=== PATIENT | female | born 1970 | race Caucasian/White ===

== ENCOUNTER 2017-04-09 13:08 | Inpatient (IN) | payer MEDICAID, OTHER ==
--- NOTE | 2017-04-09 13:46 | ED Physician Chart ---
Chief Complaint/HPI - Patient Information Date Seen:: 04/09/17 Time Seen:: 13:15 Chief Complaint:: Left Hip Pain History of Present Illness:: onset x 4 days of intermittent left hip pain; pt denies any trauma; last tetanus shot: <5 years; UTD; pt denies LOC, ALOC, AMS, H/As, neck pain, C/P, SOB , Abd. pain, cough, A/N/V/D/c, fever, chills, or urinary s/s Allergies:: Allergies Allergy/AdvReac Type Severity Reaction Status Date / Time No Known Allergies Allergy Verified 04/09/17 13:12 Vitals:: Vital Signs - 8 hr 04/09/17 13:13 Temp 98.9 F HR 108 RR 16 BP 117/81 O2 Sat % 97 Historian:: Patient, Family Member Review:: Nurse's Note Reviewed Review of Systems - Review of Systems General/Constitutional: Fever, Chills, No weight loss, No weakness, No diaphoresis, No edema, No loss of appetite Skin: No skin lesions, Rash, No bruising Head: No headache, No light-headedness Eyes: No loss of vision, No pain, No diplopia ENT: No earache, No nasal drainage, No sore throat, No tinnitus Neck: No neck pain, No swelling, No thyromegaly, No stiffness, No mass noted Cardio Vascular: No chest pain, No palpitations, No PND, No orthopnea, No edema Pulmonary: No SOB, No cough, No sputum, No wheezing GI: Nausea, Vomiting, Diarrhea, No pain, No melena, No hematochezia, Constipation, No hematemesis G/U: No dysuria, No frequency, No hematuria 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, No abnormal vaginal bleed, No contraction Musculoskeletal: Bone or joint pain, No back pain, No muscle pain Endocrine: No polyuria, No polydipsia Psychiatric: Prior psych history, Depression, Anxiety, No suicidal ideation, No homicidal ideation, No auditory hallucination, No visual hallucination Hematopoietic: No bruising, No lymphadenopathy Allergic/Immuno: No urticaria, No angioedema Neurological: No syncope, No focal symptoms, No weakness, No paresthesia, No headache, No seizure, No dizziness, No confusion, No vertigo Past Medical History - Past Medical History Obtainable: Yes Past Medical History: Asthma/COPD, Other (PNA) Family History: HTN Social History: Smoker, No Alcohol, No Drug Use, Single Surgical History: Psychiatricy History: Bipolar Medication: Reviewed Family Medical History - Family Member Mother Hx Family Cancer: No Hx Family Congestive Heart Failure: No Hx Family Hypertension: No Hx Family Diabetes: No Hx Family Seizures: No Hx Family Dementia: No Hx Family AIDS: No Physical Exam - Physical Examination General/Constitutional: Awake, Well-developed, well-nourished, Alert, No distress, GCS 15, Non-toxic appearing, Ambulatory Head: Atraumatic Eyes: Lids, conjuctiva normal, PERRL, EOMI Skin: Nl inspection, No rash, No skin lesions, No ecchymosis, Well hydrated, No lymphadenopathy ENMT: External ears, nose nl, Nasal exam nl, Lips, teeth, gums nl Neck: Nontender, Full ROM w/o pain, No JVD, No nuchal rigidity, No bruit, No mass, No stridor Respiratory: Nl effort/Exclusion, Clear to Auscultation, No Wheeze/Rhonchi/Rales Cardio Vascular: RRR, No murmur, gallop, rubs, NL S1 S2 GI: No tenderness/rebounding/guarding, No organomegaly, No hernia, Normal BS's, Nondistended, No mass/bruits, No McBurney tenderness : No CVA tenderness Extremities: normal strength in all extremities, No edema, Normal digits & nails Other Extremities comments:: Left Hip: + tenderness and deformity with limited ROMs; good NV functions Neuro/Psych: Alert/oriented, DTR's symmetric, Normal sensory exam, Normal motor strength, Judgement/insight normal, Mood normal, Normal gait, No focal deficits Misc: normal gait, Normal back, No paraspinal tenderness Labs/Radiology/EKG Results - Lab Results Comments:: U/A: + Nitrate; + Leukocytes; + Bacteria - Radiology Results Results: + Mildly displaced Intertrochanteric Fracture of Left Hip ED Septic Shock - . Is Septic Shock (SBP<90, OR Lactate>4 mmol\L) present?: No - <6hrs of presentation: Vital Signs: Vital Signs - 8 hr 04/09/17 13:13 Temp 98.9 F HR 108 RR 16 BP 117/81 O2 Sat % 97 Reassessment (Disposition) - Reassessment Reassessment Condition:: Improved - Diagnosis Diagnosis:: Left Hip Fracture; Left Hip Intractable Pain; UTI - Aftercare/Follow up Instructions Aftercare/Follow-Up Instructions:: Counseled pt regarding lab results/diagnosis & need follow up, Counseled pt & family regarding lab results/diagnosis & need follow up - Patient Disposition Discharge/Transfer:: Acute Care w/in this hosp Accepting Physician:: Dr. Garcia Time Called:: 6050 Time Responded:: 16:40 Admitted to:: Med/Surg Spoke to:: Dr. Garcia Admitting Medical Physician:: Dr. Garcia Condition at Disposition:: Stable, Improved
[2017-04-09 14:29] LABS: AMPHETAMINE URINE NEGATIVE (NEGATIVE); BARBITURATES URINE NEGATIVE (NEGATIVE); METHADONE URINE POSITIVE (NEGATIVE)
[2017-04-09 14:49] LABS: URINE BILIRUBIN SMALL (NEGATIVE); URINE COLOR ORANGE; URINE GLUCOSE (UA) NEGATIVE (NEGATIVE); URINE KETONE NEGATIVE (NEGATIVE)
[2017-04-09 14:50] LABS: URINE BLOOD NEGATIVE (NEGATIVE); URINE PH >=9.0; URINE PROTEIN >300 mg/dL (NEGATIVE)
[2017-04-09 14:51] LABS: URINE AMORPHOUS SEDIMENT MODERATE PHOSPHATES (NONE SEEN); URINE BACTERIA MODERATE /hpf (NONE SEEN); URINE EPITHELIAL CELLS NONE SEEN /lpf (FEW); URINE RBC NONE SEEN /hpf (0-5); URINE TRIPLE PHOSPHATE CRYSTAL MANY /hpf (FEW); URINE WBC 0-2 /hpf (0-5)
--- NOTE | 2017-04-09 15:05 | Diagnostic Imaging Report ---
Exam: Left hip joint. : HISTORY: Status post fall Findings: Portable examination of the left hip joint at 1434 hours was reviewed. The study demonstrates a intratrochanteric fracture of the left femur with mild overriding of the shaft of left femur. The head of left femur is well left acetabulum. The visualized hemipelvis is intact. IMPRESSION: Minimally displaced intratrochanteric fracture left hip joint
--- NOTE | 2017-04-09 15:05 | Diagnostic Imaging Report ---
Exam: Portable examination of pelvis. HISTORY: Status post fall Findings: Portable examination of the pelvis of the 14th 34 hours was reviewed, the study demonstrates minimally displaced intratrochanteric fracture of the left hip joint. The head of left femur is well within the acetabular fossa. The pelvis is intact. The right hip joint is normal. IMPRESSION: Minimally displaced intratrochanteric fracture left hip joint.
[2017-04-09] MEDS ORDERED: cefTRIAXone 1 GM in Sodium Chloride 0.9% 50 ML IV ONE (16:07)
[2017-04-09 16:33] LABS: % BASOPHILS 1.1 % (0.0-2.0); % EOSINOPHILS 0.3 % (0.0-5.0); % LYMPHOCYTES 12.5 % (20.0-50.0); % MONOCYTES 6.9 % (2.0-10.0); % NEUTROPHILS 79.2 % (40.0-80.0); HEMATOCRIT 39.5 % (35.0-45.0); HEMOGLOBIN 13.4 gm/dL (11.7-15.5); MEAN CORPUSCULAR HEMOGLOBIN 29.1 pg (27.0-31.0); MEAN CORPUSCULAR HGB CONC 33.8 pg (28.0-36.0); MEAN PLATELET VOLUME 8.1 fl; NEUTROPHILE ABSOLUTE 10.8 Th/cmm (1.8-8.0); PLATELET COUNT 262 Th/cmm (150-400); RED BLOOD COUNT 4.59 Mil/cmm (3.80-5.10); RED CELL DISTRIBUTION WIDTH 13.1 % (11.5-20.0)
[2017-04-09 16:55] LABS: WHITE BLOOD COUNT 13.5 Th/cmm (4.8-10.8)
[2017-04-09 17:04] LABS: TROP I < 0.01 ng/mL (0.01-0.05)
[2017-04-09 17:10] LABS: ANION GAP 8.5 (7.0-16.0); BUN - UREA NITROGEN 12 mg/dL (7-25); BUN/CREATININE RATIO 10.9; CALCIUM SERUM 10.4 mg/dL (8.6-10.3); CARBON DIOXIDE 24.8 mEq/L (21.0-31.0); CHLORIDE 105 mEq/L (98-107); CHOLESTEROL 161 mg/dL (<200); CREATININE - SERUM 1.1 mg/dL (0.6-1.2); GLUCOSE 117 mg/dL (70-105); POTASSIUM SERUM 4.3 mEq/L (3.5-5.1); SODIUM SERUM 134 mEq/L (136-145); TRIGLYCERIDES 166 mg/dL (<150)
[2017-04-09 17:13] LABS: INR 0.91 (0.5-1.4); PROTHROMBIN TIME (TEST) 9.5 SECONDS (9.5-11.5)
[2017-04-09 17:35] LABS: BNP 9.8 pg/mL (5.0-100.0)
[2017-04-09] MEDS ORDERED: CARISOPRODOL 250 MG PO SCH (21:00)
[2017-04-09] MEDS: Morphine Sulfate 2 mg/mL 1mL Syr IVP PRN (21:30)
[2017-04-10] MEDS: Enoxaparin 30 mg/0.3 mL 0.3mL Syr SUBQ SCH ×3 (01:21→17:16)
[2017-04-10] MEDS: Morphine Sulfate 2 mg/mL 1mL Syr IVP PRN ×4 (01:40→18:47)
[2017-04-10 02:02] VITALS: BP 138/71
--- NOTE | 2017-04-10 02:34 | Admit Criteria Form ---
Admit Criteria Forms - Admit Criteria Diagnosis: MUSCULOSKELETAL DISEASE [facility] Clinical Indications for Admission to Inpatient Care (Place 'X' for any and all applicable criteria): Hospital admission is needed for appropriate care of the patient because of 1 or more of the following: [X ]I. Fracture, dislocation, or other musculoskeletal injury requiring inpatient care(medical) as indicated by 1 or more of the following(4)(5)(6)(7) [ ]a) Vertebral fracture requiring observation for instability or neurologic compromise (8) [ ]b) Compartment syndrome (proven or cannot be ruled out during observation level of care) (9) [ ]c) Limb-threatening injury [ ]d) Major injury requiring inpatient stabilization such as traction initiation or external fixation before internal fixation or closure of complex or open fracture [ X]e) Major injury requiring inpatient treatment after emergency or observation level care (as appropriate) [X ]f) Severe pain requiring acute inpatient management [ ]g) Injury with suspicion of abuse or neglect (eg., child, dependent elderly) [ ]II. Newly diagnosed or suspected bone, joint, or orthopedic device infection (e.g., osteomyelitis, septic arthritis) needing 1 or more of the following(1)(2)(3) [ ]a) IV antibiotics that cannot be initiated in other than inpatient setting (e.g., patient too unstable or home infusion not available) [ ]b) Device removal or replacement [ ]c) Bone or soft tissue debridement [ ]d) Joint drainage (drain placement or repetitive aspirations) [ ]III. Severe rheumatologic disease (e.g., systemic lupus erythematosus, rheumatoid arthritis) with complications or comorbidities (Also use Optimal Recovery Care Criteria or General Recovery Criteria as appropriate on the basis of predominant condition), including 1 or more of the following( 10)(11)(12)(13) [ ]a) Severe infection (e.g., CORPORATE DIRECTOR infection, sepsis) (14) [ ]b) Respiratory complications, including 1 or more of the following : [ ]i) Pleural effusion with respiratory compromise [ ]ii) Pulmonary hypertension with congestive failure [ ]iii) Respiratory failure [ ]iv) Pulmonary hemorrhage (15) [ ]c) Hematologic disease, including 1 or more of the following: [ ]i) Coagulopathy with bleeding [ ]ii) Thrombosis with hypercoagulable state [ ]iii) Thrombotic thrombocytopenic purpura [ ]d) Cerebritis with seizures, psychosis, or other severe abnormalities [ ]e) Vertebral destruction with monitoring needed for cervical myelopathy& possible respiratory compromise [ ]f) Exacerbation that requires inpatient treatment (e.g., intravenous immunosuppression) (16) [ ]g) Acute renal failure [ ]h) Cerebritis with seizures, psychosis, Altered mental status, or other neurologic abnormalities [ ]i) Pericardial effusion with tamponade [ ]j) Vertebral destruction, with monitoring needed for cervical myelopathy and possible respiratory compromise [ ]IV. Severe vasculitis with complications or comorbidities (Also use Optimal Recovery Care Criteria General Recovery Criteria as appropriate on the basis of predominant condition), including 1 or more of the following(11)(12)(17)(18)(19)(20) [ ]a) Exacerbation that requires inpatient treatment (e.g., intravenous immunosuppression) (19)(21) [ ]b) Pulmonary hemorrhage (15) [ ]c) CORPORATE DIRECTOR vasculitis with seizures, psychosis, Altered mental status that is severe or persistent, or other severe abnormalities (22) [ ]d) Cerebral infarction [ ]e) Gastrointestinal ischemia [ ]f) Gangrene or threatened amputation [ ]g) Renal failure (16) [ ]h) Other significant complications of vasculitis ( eg., tissue or organ ischemia, organ dysfunction ) [ ]V. Severe myopathy as indicated by 1 or more of the following (28)(29) [ ]a) New onset of airway compromise or inability to swallow [ ]b) Respiratory deterioration with observation needed for impending respiratory failure [ ]c) Exacerbation that requires inpatient treatment (e.g., intravenous immunosuppression) [ ]. Severe crystal gout (arthropathy) indicated by 1 or more of the following (23)(24) [ ]a) Severe pain requiring acute inpatient management [ ]b) Exacerbation that requires inpatient treatment (e.g., intravenous treatment) [ ]VII.Rhabdomyolysis and 1 or more of the following (25)(26)(27) [ ]a) Acute renal failure [ ]b) Need for intravenous hydration after emergency or observation level care (as appropriate) [ ]c) Inability to maintain oral hydration [ ]d) Change in mental status [ ]e) Electrolyte abnormality that remains after emergency or observation level care (as appropriate) [ ]VIII Post amputation complication, as indicated by ANY ONE of the following [ ]a) Infection [ ]b) Dehiscence [ ]c) Myodesis failure [ ]IX. Severe pain requiring acute inpatient management due to musculoskeletal condition [ ]X. Musculoskeletal Disease and ALL of the following: [ ]a) Symptom or finding for which emergency and observation care have failed or are not considered appropriate (Use General Criteria: Observation Care as appropriate) [ ]b) Presence of ANY ONE of the following [ ]i) A General Admission Criteria [ ]ii) A Pediatric General Admission Criteria The original [facility] content created by [facility] has been revised. The portions of the content which have been revised are identified through the use of italic text or in bold, and [facility] has neither reviewed nor approved the modified material. All other unmodified content is copyright [facility]. Please see references footnoted in the original [facility] edition 2016 Admit Criteria Met?: Yes
[2017-04-10 06:22] LABS: % BASOPHILS 1.3 % (0.0-2.0); % EOSINOPHILS 0.3 % (0.0-5.0); % LYMPHOCYTES 19.5 % (20.0-50.0); % MONOCYTES 7.4 % (2.0-10.0); % NEUTROPHILS 71.5 % (40.0-80.0); HEMATOCRIT 36.3 % (35.0-45.0); HEMOGLOBIN 12.2 gm/dL (11.7-15.5); MEAN CELL VOLUME 86.7 fl (81-100); MEAN CORPUSCULAR HEMOGLOBIN 29.2 pg (27.0-31.0); MEAN CORPUSCULAR HGB CONC 33.7 pg (28.0-36.0); MEAN PLATELET VOLUME 8.5 fl; NEUTROPHILE ABSOLUTE 7.2 Th/cmm (1.8-8.0); PLATELET COUNT 243 Th/cmm (150-400); RED BLOOD COUNT 4.19 Mil/cmm (3.80-5.10); RED CELL DISTRIBUTION WIDTH 13.4 % (11.5-20.0)
[2017-04-10 07:07] LABS: ANION GAP 7.8 (7.0-16.0); BUN - UREA NITROGEN 15 mg/dL (7-25); BUN/CREATININE RATIO 16.7; CALCIUM SERUM 9.7 mg/dL (8.6-10.3); CHLORIDE 107 mEq/L (98-107); CREATININE - SERUM 0.9 mg/dL (0.6-1.2); GLUCOSE 180 mg/dL (70-105); MAGNESIUM 2.1 mg/dL (1.9-2.7); POTASSIUM SERUM 3.8 mEq/L (3.5-5.1); SODIUM SERUM 134 mEq/L (136-145)
[2017-04-10 07:15] LABS: INR 0.9 (0.5-1.4); PROTHROMBIN TIME (TEST) 9.3 SECONDS (9.5-11.5)
[2017-04-10 07:24] LABS: WHITE BLOOD COUNT 9.9 Th/cmm (4.8-10.8)
[2017-04-10] MEDS ORDERED: ZIPRASIDONE HCL 60 MG PO SCH (09:00)
[2017-04-10] MEDS ORDERED: cefTRIAXone 1 GM in Sodium Chloride 0.9% 50 ML IV ONE (09:00)
--- NOTE | 2017-04-10 10:39 | Diagnostic Imaging Report ---
Portable chest x-ray Time: 1633 hours History: None Allowing for portable technique the heart size is normal. No focal pulmonary parenchymal processes. No hilar or mediastinal abnormalities. Impression: No acute abnormalities.
[2017-04-10] MEDS: Fluconazole 100mg/50mL 100 MG/50 ML BOTTLE IV SCH (12:24)
--- NOTE | 2017-04-11 02:30 | Consultation ---
DATE OF CONSULTATION: 04/10/2017 HISTORY: The patient is a 47-year-old lady admitted to [facility] on 04/09/2017 because of a fracture of the left hip. I was called in orthopedic consultation by the admitting physician regarding this fracture. PAST HISTORY: The patient is vociferous and cussing and not making any sense at all. I tried to take a history and find out about her fracture and I got absolutely nowhere. Information obtained from the chart indicates that she is a tobacco user. She was admitted from her home rather than a facility of any sort. There is a history of substance abuse. She also has a history of asthma, COPD, and bipolar disorder. PHYSICAL EXAMINATION: The patient was examined in her hospital room at [facility]. She was lying on her back on the bed with her left leg hanging over the side. I observed some swelling about the left hip, but no bruising. Any attempt at movement, active or passive brought about even louder yelling and cussing, i.e. apparently caused her pain. Her ankles "dry" with no edema. Peripheral pulses are thready. Skin color and temperature is normal. I observed appropriate movement of all other limbs. She was totally uncooperative when I was trying to examine her, and just continued to cuss and yell even more loudly. IMAGING STUDIES: I did x-rays in the PACS fracture in the femoral neck, which is displaced. ORTHOPEDIC DIAGNOSIS: Fracture left femoral neck, closed, displaced. RECOMMENDATIONS: When the patient is medically cleared and optimized she can have surgery arthroplasty left hip, following which she can be ambulated, partial weightbearing, and when stable and safe in a couple of days will be transferred to a SNF. Thank you for this interesting referral. JOB# [id number]
[2017-04-11] MEDS: Morphine Sulfate 2 mg/mL 1mL Syr IVP PRN ×2 (06:13→10:30)
[2017-04-11] MEDS: Enoxaparin 30 mg/0.3 mL 0.3mL Syr SUBQ SCH ×2 (09:15→21:11)
[2017-04-11] MEDS: Fluconazole 100mg/50mL 100 MG/50 ML BOTTLE IV SCH (09:16)
[2017-04-11 10:55] LABS: HEMOGLOBIN 12.6 gm/dL (11.7-15.5); MEAN CORPUSCULAR HEMOGLOBIN 29.2 pg (27.0-31.0); MEAN PLATELET VOLUME 8.1 fl; PLATELET COUNT 230 Th/cmm (150-400); RED CELL DISTRIBUTION WIDTH 13.5 % (11.5-20.0); WHITE BLOOD COUNT 10.5 Th/cmm (4.8-10.8)
[2017-04-11 11:25] LABS: EOSINOPHIL 2 % (0-5); NEUTROPHILS 66 % (40-80); PLATELET ESTIMATE ADEQUATE (NORMAL); PLATELET MORPHOLOGY NORMAL (NORMAL); TOTAL CELLS COUNTED 100
[2017-04-11 12:29] LABS: ANION GAP 7.2 (7.0-16.0); BUN - UREA NITROGEN 7 mg/dL (7-25); CALCIUM SERUM 9.3 mg/dL (8.6-10.3); CARBON DIOXIDE 23.8 mEq/L (21.0-31.0); CHLORIDE 111 mEq/L (98-107); CREATININE - SERUM 0.7 mg/dL (0.6-1.2); GLUCOSE 104 mg/dL (70-105); MAGNESIUM 2.1 mg/dL (1.9-2.7); SODIUM SERUM 138 mEq/L (136-145)
--- NOTE | 2017-04-11 14:19 | Cardiology ---
Cardiology Report - Cardiology Cardiology: Date of Service: 04/10/2017 Dr. Garcia M-MODE ECHOCARDIOLGRAM: Mitral valve normal left ventricular posterior wall hypertrophy ejection fraction 60% left antrum normal aortic root is normal aortic leaflets normal CONCLUSION: Hypertrophy left ventricle ejection fraction 60% 2D ECHO: Long axis hypertrophy left ventricle mitral normal left atrium normal aortic root normal aortic leaflets normal Short axis mitral valve and aortic valve normal Apical 4 chamber normal-sized left ventricle with hypertrophy of the left ventricle ejection fraction 60% left Atrium normal right ventricular cavity domal right atrium normal CONCLUSION: Hypertrophy left ventricle ejection fraction 60% DOPPLER: Prominent A wave normal antegrade flow mitral valve tricuspid valve the aortic pulmonary valve CONCLUSION: 04/10/2017
[2017-04-11] MEDS ORDERED: Midazolam 1mg/ml 2 ml vial IV ONE (14:21)
[2017-04-11] MEDS ORDERED: Meperidine 25 mg/mL 1mL Syr IVP PRN (16:43)
[2017-04-11] MEDS ORDERED: Lactated Ringer 1,000 ML IV SCH (16:45)
[2017-04-11] MEDS ORDERED: fentaNYL Citrate 100 mcg/2mL Vial ONE (16:46)
[2017-04-12] MEDS: Nicotine 21 mg/24 hr Tdm TD SCH ×2 (01:01→08:52)
[2017-04-12] MEDS: Morphine Sulfate 2 mg/mL 1mL Syr IVP PRN ×2 (01:02→18:25)
[2017-04-12] MEDS ORDERED: Morphine Sulfate 2 mg/mL 1mL Syr IVP PRN ×2 (03:28→04:59)
[2017-04-12] MEDS ORDERED: Magnesium Hydroxide (MOM) 30 mL UDC PO PRN (03:33)
[2017-04-12] MEDS: ceFAZolin 1 GM in Sodium Chloride 0.9% 50 ML IV SCH ×2 (04:23→14:36)
[2017-04-12] MEDS: D5-0.45NS 1,000 ML IV SCH ×2 (04:24→22:06)
[2017-04-12] MEDS: Multivitamin Tab PO SCH (08:51)
[2017-04-12] MEDS: Enoxaparin 30 mg/0.3 mL 0.3mL Syr SUBQ SCH ×2 (08:51→18:15)
[2017-04-12] MEDS: Fluconazole 100mg/50mL 100 MG/50 ML BOTTLE IV SCH (08:54)
[2017-04-12 08:59] LABS: % BASOPHILS 0.4 % (0.0-2.0); % EOSINOPHILS 0.4 % (0.0-5.0); % MONOCYTES 9.4 % (2.0-10.0); % NEUTROPHILS 74.8 % (40.0-80.0); MEAN CELL VOLUME 86.8 fl (81-100); MEAN CORPUSCULAR HEMOGLOBIN 29.5 pg (27.0-31.0); MEAN PLATELET VOLUME 8.2 fl; NEUTROPHILE ABSOLUTE 8.8 Th/cmm (1.8-8.0); PLATELET COUNT 215 Th/cmm (150-400); RED BLOOD COUNT 3.18 Mil/cmm (3.80-5.10); RED CELL DISTRIBUTION WIDTH 13.3 % (11.5-20.0); WHITE BLOOD COUNT 11.7 Th/cmm (4.8-10.8)
[2017-04-12 09:17] LABS: ALKALINE PHOSPHATASE 89 U/L (34-104); ANION GAP 7.7 (7.0-16.0); BILIRUBIN,TOTAL 0.2 mg/dL (0.3-1.0); BUN - UREA NITROGEN 4 mg/dL (7-25); BUN/CREATININE RATIO 5.7; CALCIUM SERUM 8.5 mg/dL (8.6-10.3); CARBON DIOXIDE 21.7 mEq/L (21.0-31.0); CHLORIDE 109 mEq/L (98-107); CREATININE - SERUM 0.7 mg/dL (0.6-1.2); GLUCOSE 205 mg/dL (70-105); POTASSIUM SERUM 3.4 mEq/L (3.5-5.1); SGOT 28 U/L (13-39); SGPT/ALT 19 U/L (7-52); SODIUM SERUM 135 mEq/L (136-145)
[2017-04-12 09:24] LABS: HEMATOCRIT 27.6 % (35.0-45.0); HEMOGLOBIN 9.4 gm/dL (11.7-15.5)
[2017-04-12] MEDS ORDERED: Hydrocodone/APAP 5mg/325mg Tab PO PRN (13:34)
--- NOTE | 2017-04-12 14:19 | General Progress Note ---
Subjective - Review of Systems Service Date: 04/12/17 Subjective: Modest pain left hip - surgery yesterday She goes outside and smokes. Objective - Results Result Diagrams: 04/12/17 08:50 04/12/17 08:50 Recent Labs: Laboratory Last Values WBC 11.7 Th/cmm (4.8-10.8) H 04/12/17 08:50 RBC 3.18 Mil/cmm (3.80-5.10) L 04/12/17 08:50 Hgb 9.4 gm/dL (11.7-15.5) L D 04/12/17 08:50 Hct 27.6 % (35.0-45.0) L D 04/12/17 08:50 MCV 86.8 fl (81-100) 04/12/17 08:50 MCH 29.5 pg (27.0-31.0) 04/12/17 08:50 MCHC Differential 34.0 pg (28.0-36.0) 04/12/17 08:50 RDW 13.3 % (11.5-20.0) 04/12/17 08:50 Plt Count 215 Th/cmm (150-400) 04/12/17 08:50 MPV 8.2 fl 04/12/17 08:50 Neutrophils % 74.8 % (40.0-80.0) 04/12/17 08:50 Lymphocytes % 15.0 % (20.0-50.0) L 04/12/17 08:50 Monocytes % 9.4 % (2.0-10.0) 04/12/17 08:50 Eosinophils % 0.4 % (0.0-5.0) 04/12/17 08:50 Basophils % 0.4 % (0.0-2.0) 04/12/17 08:50 Neutrophils (Manual) 66 % (40-80) 04/11/17 10:59 Lymphocytes 26 % (20-50) 04/11/17 10:59 Monocytes 6 % (2-10) 04/11/17 10:59 Eosinophils 2 % (0-5) 04/11/17 10:59 Platelet Estimate ADEQUATE (NORMAL) 04/11/17 10:59 Platelet Morphology NORMAL (NORMAL) 04/11/17 10:59 RBC Morph Micro Appear NORMAL (NORMAL) 04/11/17 10:59 PT 9.3 SECONDS (9.5-11.5) L 04/10/17 05:57 INR 0.90 (0.5-1.4) 04/10/17 05:57 Sodium 135 mEq/L (136-145) L 04/12/17 08:50 Potassium 3.4 mEq/L (3.5-5.1) L 04/12/17 08:50 Chloride 109 mEq/L (98-107) H 04/12/17 08:50 Carbon Dioxide 21.7 mEq/L (21.0-31.0) 04/12/17 08:50 Anion Gap 7.7 (7.0-16.0) 04/12/17 08:50 BUN 4 mg/dL (7-25) L 04/12/17 08:50 Creatinine 0.7 mg/dL (0.6-1.2) 04/12/17 08:50 Est GFR ( Amer) > 60.0 ml/min (>90) 04/12/17 08:50 Est GFR (Non-Af Amer) > 60.0 ml/min 04/12/17 08:50 BUN/Creatinine Ratio 5.7 04/12/17 08:50 Glucose 205 mg/dL (70-105) H 04/12/17 08:50 Hemoglobin A1c % 5.4 % (4.0-6.0) 04/10/17 05:57 Whole Bld Lactic Acid 1.67 mmol/L (0.60-1.99) 04/09/17 16:20 Calcium 8.5 mg/dL (8.6-10.3) L 04/12/17 08:50 Magnesium 2.1 mg/dL (1.9-2.7) 04/11/17 11:43 Total Bilirubin 0.2 mg/dL (0.3-1.0) L 04/12/17 08:50 AST 28 U/L (13-39) 04/12/17 08:50 ALT 19 U/L (7-52) 04/12/17 08:50 Alkaline Phosphatase 89 U/L (34-104) 04/12/17 08:50 Creatine Kinase 56 U/L (30-223) 04/09/17 16:20 Troponin I < 0.01 ng/mL (0.01-0.05) L 04/09/17 16:20 B-Natriuretic Peptide 9.8 pg/mL (5.0-100.0) 04/09/17 16:20 Total Protein 5.8 gm/dL (6.0-8.3) L 04/12/17 08:50 Albumin 2.9 gm/dL (3.7-5.3) L 04/12/17 08:50 Globulin 2.9 gm/dL 04/12/17 08:50 Albumin/Globulin Ratio 1.0 (1.0-1.8) 04/12/17 08:50 Triglycerides 166 mg/dL (<150) H 04/09/17 16:20 Cholesterol 161 mg/dL (<200) 04/09/17 16:20 LDL Cholesterol Direct 90 mg/dL (75-193) 04/09/17 16:20 HDL Cholesterol 50 mg/dL (23-92) 04/09/17 16:20 TSH 1.06 uIU/ml (0.34-5.60) 04/10/17 05:57 Urine Source CLEAN C 04/09/17 13:30 Urine Color ORANGE 04/09/17 13:30 Urine Clarity CLOUDY (CLEAR) H 04/09/17 13:30 Urine pH >=9.0 04/09/17 13:30 Ur Specific [place] 1.005 (1.005-1.030) 04/09/17 13:30 Urine Protein >300 mg/dL (NEGATIVE) H 04/09/17 13:30 Urine Glucose (UA) NEGATIVE mg/dL (NEGATIVE) 04/09/17 13:30 Urine Ketones NEGATIVE mg/dL (NEGATIVE) 04/09/17 13:30 Urine Blood NEGATIVE (NEGATIVE) 04/09/17 13:30 Urine Nitrate POSITIVE (NEGATIVE) H 04/09/17 13:30 Urine Bilirubin SMALL (NEGATIVE) H 04/09/17 13:30 Urine Urobilinogen 4.0 E.U./dL (0.2 - 1.0) H 04/09/17 13:30 Ur Leukocyte Esterase TRACE (NEGATIVE) H 04/09/17 13:30 Urine RBC NONE SEEN /hpf (0-5) 04/09/17 13:30 Urine WBC 0-2 /hpf (0-5) 04/09/17 13:30 Ur Epithelial Cells NONE SEEN /lpf (FEW) 04/09/17 13:30 Triple Phos Crystals MANY /hpf (FEW) 04/09/17 13:30 Amorphous Sediment MODERATE PHOSPHATES (NONE SEEN) 04/09/17 13:30 Urine Bacteria MODERATE /hpf (NONE SEEN) 04/09/17 13:30 Urine Yeast MODERATE /hpf (NONE SEEN) H 04/09/17 13:30 Urine Test NEGATIVE 04/09/17 13:35 Urine Opiates Screen NEGATIVE (NEGATIVE) 04/09/17 13:30 Urine Methadone Screen POSITIVE (NEGATIVE) 04/09/17 13:30 Ur Barbiturates Screen NEGATIVE (NEGATIVE) 04/09/17 13:30 Ur Tricyclics Screen POSITIVE (NEGATIVE) H 04/09/17 13:30 Ur Phencyclidine Scrn NEGATIVE (NEGATIVE) 04/09/17 13:30 Amphetamines Screen NEGATIVE (NEGATIVE) 04/09/17 13:30 U Methamphetamines Scrn NEGATIVE (NEGATIVE) 04/09/17 13:30 U Benzodiazepines Scrn NEGATIVE (NEGATIVE) 04/09/17 13:30 U Cocaine Metab Screen NEGATIVE (NEGATIVE) 04/09/17 13:30 U Cannabinoids Screen NEGATIVE (NEGATIVE) 04/09/17 13:30 - Physical Exam Vitals and I&O: Vital Signs Temp 98.0 F 04/12/17 12:07 Pulse 107 04/12/17 12:07 Resp 20 04/12/17 12:07 BP 130/79 04/12/17 12:07 Pulse Ox 98 04/12/17 12:07 Intake & Output 04/11/17 04/12/17 04/12/17 18:59 06:59 18:59 Intake Total 50 390 100 Output Total 1120 450 Balance 50 -730 -350 Weight (lbs) 84.232 kg 83.915 kg Intake: Intake, IV Amount 50 50 Fluconazole 100mg/50mL 50 100 mg In 50 ml @ 50 mls/ hr IV Q24HR [facility] Rx#: [id number] ceFAZolin 1 gm In Sodium 50 Chloride 0.9% 50 ml @ 100 mls/hr IV Q8HR [facility] Rx#: [id number] Oral 340 100 Output: Urine 1000 450 Other 120 Other: # Bowel Movements 0 Active Medications: Current Medications Acetaminophen/Hydrocodone Bitart ([place] 5mg/325mg) 1 tab PO Q4H PRN PRN Reason: PAIN-MODERATE Stop: 06/11/17 13:33 Alprazolam (Xanax) 1 mg PO Q8HR [facility]O PRN Reason: Protocol Stop: 06/08/17 21:59 Last Admin: 04/12/17 06:21 Dose: Not Given Aspirin (Ecotrin) 81 mg PO DAILY [facility] Stop: 06/09/17 08:59 Last Admin: 04/12/17 08:51 Dose: 81 mg Carisoprodol (Soma) 350 mg PO BID [facility] Stop: 06/09/17 08:59 Last Admin: 04/12/17 08:51 Dose: 350 mg Docusate Sodium (Colace) 100 mg PO DAILY PRN PRN Reason: Constipation Stop: 06/11/17 08:59 Enoxaparin Sodium (Lovenox) 30 mg SUBQ BID [facility] Stop: 06/08/17 20:59 Last Admin: 04/12/17 08:51 Dose: Not Given Gabapentin (Neurontin) 600 mg PO TID [facility] Stop: 06/08/17 20:59 Last Admin: 04/12/17 08:51 Dose: 600 mg Fluconazole (Diflucan) 100 mg in 50 mls @ 50 mls/hr IV Q24HR [facility] Stop: 06/09/17 08:44 Last Admin: 04/12/17 08:54 Dose: 50 mls/hr Dextrose/Sodium Chloride (D5-0.45ns) 1,000 mls @ 60 mls/hr IV .[id number] [facility] Stop: 06/11/17 03:25 Last Admin: 04/12/17 04:24 Dose: 60 mls/hr Ketorolac Tromethamine (Toradol) 30 mg IVP Q6HR PRN PRN Reason: Pain (Mild-Moderate) Stop: 06/09/17 01:08 Last Admin: 04/12/17 02:22 Dose: 30 mg Magnesium Hydroxide (Milk Of Magnesia) 30 ml PO DAILY PRN PRN Reason: If Colace ineffective Stop: 06/11/17 03:32 Meperidine HCl (Demerol) 12.5 mg IVP UD PRN PRN Reason: POST-OP PAIN Stop: 04/12/17 16:42 Morphine Sulfate (Morphine) 1 mg IVP Q4HR PRN PRN Reason: Pain (Moderate) Stop: 06/08/17 20:48 Last Admin: 04/12/17 01:02 Dose: 1 mg Morphine Sulfate (Morphine) 1 mg IVP Q2HR PRN PRN Reason: Severe Pain Stop: 06/11/17 03:27 Last Admin: 04/12/17 09:09 Dose: 1 mg Multivitamins/Vitamin C (Theragran) 1 tab PO DAILY [facility] Stop: 06/11/17 08:59 Last Admin: 04/12/17 08:51 Dose: 1 tab Nicotine (Nicotine Transdermal System) 21 mg TD DAILY [facility] Stop: 06/10/17 20:59 Last Admin: 04/12/17 08:52 Dose: Not Given Quetiapine Fumarate (Seroquel) 300 mg PO HS [facility] PRN Reason: Protocol Stop: 06/08/17 20:59 Last Admin: 04/11/17 21:11 Dose: 300 mg Rivaroxaban (Xarelto) 10 mg PO DAILY [facility] Stop: 05/02/17 09:01 Ziprasidone (Geodon) 120 mg PO HS [facility] Stop: 06/09/17 00:14 Last Admin: 04/11/17 21:11 Dose: 120 mg - Procedures Procedures: Procedures Procedure Code Date DELIVERY ONLY 84064 12/19/04 INJECT RH IMMUNE GLOBUL 99.11 11/09/04 LOW CERVICAL 74.1 12/19/04
[2017-04-12] MEDS ORDERED: Potassium Chloride 20 mEq ER Tab PO ONE (15:53)
--- NOTE | 2017-04-12 18:35 | Operative Report ---
DATE OF SURGERY: 04/11/2017 PREOPERATIVE DIAGNOSIS: Femoral neck fracture, left hip, closed. POSTOPERATIVE DIAGNOSIS: Femoral neck fracture, left hip, closed. SURGEON: Angel Mcdonough M.D. CLERICAL WAREHOUSEMAN: Vladimir Goldberg M.D. ANESTHESIOLOGIST: Akil Bright M.D. ANESTHESIA: Spinal anesthesia. PROCEDURE: Hemiarthroplasty of fracture left hip with Us and Nephew components. DESCRIPTION OF PROCEDURE: Following satisfactory anesthesia by Dr. Bright, the patient was given intravenous antibiotics. She was placed in the right lateral decubitus position and held with the vacuum immobilizer. A sterile plastic U drape was used to seal off the perineum. The left hip and lower extremity were sterilely prepped and draped. Sterile stockinette was used over the extremity and sterile Ioban over the operative field. The routine timeout was performed. A posterolateral approach to the hip was made. The fascia ramona was divided just below the greater trochanter and dissected proximally and medially dividing the gluteal fascia and muscle. The Charnley retractor was then placed. The external rotator muscles were released from their attachment at the greater trochanter and tagged with two #1 Ethibond sutures for later reattachment. The oscillating saw was used to divide the neck 1 cm above the lesser trochanter and then the fractured neck and head were removed. The head measured at 43 mm diameter. The acetabulum was debrided and a 43 mm sizer tried. The fit was good. The proximal end of the femur was brought into the wound. The box chisel was used to open the canal and then the canal finder and progressive reamers to size 11 were used. Broaches to size 10 were used, 10 fit was very tight. A trial reduction was carried out with a standard size neck and a 43 mm head. Fit, stability and range of motion appeared good. The trial components were removed and the implant placed. The hip was again reduced. Fit, stability and range of motion were good. The wound was irrigated and closed over a 3-1/16-inch Hemovac drain. The external rotator muscles were reattached to the greater trochanter via 2 drill holes in the greater trochanter. The fascia ramona and gluteal fascia were closed with a running #1 Vicryl stitch. The subcutaneous layer was closed with 2-0 Vicryl and skin brianne used. Diluted Exparel was injected in each layer during closure, total of 80 mL. Blood loss was estimated at 350 mL. There was no replacement. IMMEDIATE POSTOPERATIVE CONDITION: Good. [facility]# [id number]
[2017-04-13] MEDS: Multivitamin Tab PO SCH (08:23)
[2017-04-13] MEDS: Morphine Sulfate 2 mg/mL 1mL Syr IVP PRN ×2 (08:23→17:12)
[2017-04-13] MEDS: Nicotine 21 mg/24 hr Tdm TD SCH (08:24)
[2017-04-13] MEDS: Enoxaparin 30 mg/0.3 mL 0.3mL Syr SUBQ SCH ×2 (09:00→17:12)
[2017-04-13] MEDS: Fluconazole 100mg/50mL 100 MG/50 ML BOTTLE IV SCH (09:06)
--- NOTE | 2017-04-13 11:28 | Diagnostic Imaging Report ---
Exam: Left hip joint. Status post the arthroplasty. Findings: Portable examination of left hip joint at 1143 was reviewed. The study demonstrates satisfactory positioning of total left hip prosthesis. There is no evidence of fracture dislocation, the head of left prosthesis is well within the acetabulum. Drainage tubes are noted. IMPRESSION: Satisfactory appearance of the total left hip prosthesis.
[2017-04-13 11:49] LABS: % EOSINOPHILS 0.4 % (0.0-5.0); % LYMPHOCYTES 12.2 % (20.0-50.0); % MONOCYTES 7.8 % (2.0-10.0); % NEUTROPHILS 79.6 % (40.0-80.0); HEMATOCRIT 27.7 % (35.0-45.0); HEMOGLOBIN 9.3 gm/dL (11.7-15.5); MEAN CELL VOLUME 88.3 fl (81-100); MEAN CORPUSCULAR HEMOGLOBIN 29.5 pg (27.0-31.0); MEAN CORPUSCULAR HGB CONC 33.4 pg (28.0-36.0); MEAN PLATELET VOLUME 7.9 fl; PLATELET COUNT 237 Th/cmm (150-400); RED BLOOD COUNT 3.14 Mil/cmm (3.80-5.10); RED CELL DISTRIBUTION WIDTH 13.2 % (11.5-20.0)
[2017-04-13 11:54] LABS: WHITE BLOOD COUNT 13.9 Th/cmm (4.8-10.8)
[2017-04-13 12:06] LABS: ANION GAP 8.8 (7.0-16.0); BUN - UREA NITROGEN 7 mg/dL (7-25); BUN/CREATININE RATIO 11.7; CARBON DIOXIDE 21.9 mEq/L (21.0-31.0); CHLORIDE 110 mEq/L (98-107); CREATININE - SERUM 0.6 mg/dL (0.6-1.2); GLUCOSE 176 mg/dL (70-105); MAGNESIUM 1.9 mg/dL (1.9-2.7); POTASSIUM SERUM 3.7 mEq/L (3.5-5.1); SODIUM SERUM 137 mEq/L (136-145)
[2017-04-13] MEDS: D5-0.45NS 1,000 ML IV SCH (17:12)
[2017-04-14] MEDS: Morphine Sulfate 2 mg/mL 1mL Syr IVP PRN ×5 (01:06→23:37)
[2017-04-14] MEDS: Enoxaparin 30 mg/0.3 mL 0.3mL Syr SUBQ SCH (09:33)
[2017-04-14] MEDS: Multivitamin Tab PO SCH (09:33)
[2017-04-14] MEDS: Nicotine 21 mg/24 hr Tdm TD SCH (09:34)
[2017-04-14] MEDS: Fluconazole 100mg/50mL 100 MG/50 ML BOTTLE IV SCH (09:57)
--- NOTE | 2017-04-14 10:43 | Diagnostic Imaging Report ---
Left hip (4 views) HISTORY: Status post left hip arthroplasty, surgery. There is a left hip arthroplasty. Position and alignment are anatomic. Overlying surgical brianne seen within the soft tissues. IMPRESSION: Status post left hip arthroplasty
[2017-04-15] MEDS: D5-0.45NS 1,000 ML IV SCH (01:54)
[2017-04-15] MEDS: Morphine Sulfate 2 mg/mL 1mL Syr IVP PRN ×5 (04:33→22:08)
[2017-04-15] MEDS: Fluconazole 100mg/50mL 100 MG/50 ML BOTTLE IV SCH (08:58)
[2017-04-15] MEDS: Multivitamin Tab PO SCH (08:59)
[2017-04-15 11:04] LABS: % EOSINOPHILS 0.3 % (0.0-5.0); % LYMPHOCYTES 14.7 % (20.0-50.0); % MONOCYTES 7.9 % (2.0-10.0); % NEUTROPHILS 77.1 % (40.0-80.0); HEMATOCRIT 24.7 % (35.0-45.0); HEMOGLOBIN 8.5 gm/dL (11.7-15.5); MEAN CELL VOLUME 86.7 fl (81-100); MEAN CORPUSCULAR HEMOGLOBIN 29.9 pg (27.0-31.0); MEAN CORPUSCULAR HGB CONC 34.5 pg (28.0-36.0); RED BLOOD COUNT 2.85 Mil/cmm (3.80-5.10); RED CELL DISTRIBUTION WIDTH 12.9 % (11.5-20.0)
[2017-04-15 11:11] LABS: PLATELET COUNT 373 Th/cmm (150-400); WHITE BLOOD COUNT 10.3 Th/cmm (4.8-10.8)
[2017-04-15 11:24] LABS: ANION GAP 10.4 (7.0-16.0); BUN - UREA NITROGEN 8 mg/dL (7-25); BUN/CREATININE RATIO 11.4; CALCIUM SERUM 9.3 mg/dL (8.6-10.3); CARBON DIOXIDE 23.3 mEq/L (21.0-31.0); CHLORIDE 107 mEq/L (98-107); CREATININE - SERUM 0.7 mg/dL (0.6-1.2); GLUCOSE 189 mg/dL (70-105); MAGNESIUM 2.1 mg/dL (1.9-2.7); POTASSIUM SERUM 3.7 mEq/L (3.5-5.1); SODIUM SERUM 137 mEq/L (136-145)
[2017-04-15] MEDS: Nicotine 21 mg/24 hr Tdm TD SCH (11:47)
[2017-04-16] MEDS: Morphine Sulfate 2 mg/mL 1mL Syr IVP PRN ×2 (04:13→08:40)
[2017-04-16] MEDS: D5-0.45NS 1,000 ML IV SCH (04:13)
[2017-04-16] MEDS: Multivitamin Tab PO SCH (08:33)
[2017-04-16] MEDS: Nicotine 21 mg/24 hr Tdm TD SCH (08:34)
[2017-04-16] MEDS: Fluconazole 100mg/50mL 100 MG/50 ML BOTTLE IV SCH ×2 (10:12→10:41)
--- NOTE | 2017-04-16 10:13 | Discharge Summary ---
DATE OF DISCHARGE: 04/16/2017 ADMITTING DIAGNOSES: 1. Minimally displaced intertrochanteric fracture of the left femur. 2. Leukocytosis. 3. Yeast urinary tract infection. SECONDARY DIAGNOSES: Include history of asthma, chronic obstructive pulmonary disease, nicotine dependence, history of bipolar disorder. DISCHARGE DIAGNOSES: Status post hemiarthroplasty of the left hip, postop anemia-stable, urinary tract infection-status post treatment. CONSULTANTS: Dr. Mcdonough, Orthopedic Surgery. MAJOR PROCEDURES: On the she underwent a pelvic and hip x-ray showing a minimally displaced intratrochanteric fracture. She also underwent a 2D echo on 04/12/2017, showing no major abnormalities. Left ventricular ejection fraction was 60%-65%. There was a hemiarthroplasty fracture of the left hip with Su and Nephew components done on 04/09/2017 and without any complications. DISCHARGE MEDICATIONS: Soma 250 at bedtime, gabapentin 600 mg t.i.d., Seroquel 300 mg at bedtime, Irma 60 mg daily, ibuprofen 800 mg p.o. t.i.d. with meals x 10 days, and aspirin 81 daily. BRIEF HOSPITAL COURSE: A 47-year-old female with history of asthma, COPD, nicotine dependence, who presented to the ER with 4-day history of left hip pain. The patient denied any trauma, although she stated that 3 years ago while she was hospitalized for an apparent lung infection she developed some left hip pain, given that it became a prolonged hospital stay. The pain eventually resolved except for on occasions of exertion. The patient reported sudden worsening of her pain with no improvement over 4 days, so she decided to come into the ER. X-ray showed minimally displaced intertrochanteric fracture. Other pertinent findings included a white count of 13.5 and UA which was consistent with a yeast UTI. She was admitted to the Medical Surgical Floor, placed on pain medications, Lovenox, IV fluids, and Diflucan IV. She was seen by orthopedic surgeon and was medically cleared for surgery. She underwent the above-mentioned procedure without any complications and her postop care was uneventful. CONDITION ON DISCHARGE: Stable. DISPOSITION: The patient will be discharged home with home health for PT and nursing followup. She is to follow up with her primary care doctor within a week and Ortho as scheduled. JOB# [id number] [place]
--- NOTE | 2017-04-17 13:42 | Pathology Report ---
[id number] Collection date: 04/11/2017 Surgeon: Dr. Kiran Mcdonough Specimen Description: Right hip femoral head Gross Description: Received in formalin is a 4.5 x 4.5 x 5.0 cm femoral head with a smooth, proctor articular surface. A small portion of attached femoral neck bone is identified showing hemorrhagic fragmentation with several smaller portions of femoral neck bone also identified ranging from 0.8 to 1.3 cm in greatest dimension. Sectioning shows areas of hemorrhage and fragmentation consistent with fracture. Program Director [employer] sections are submitted in one cassette following decalcification. Microscopic Description: The histologic sections show articular bone and cartilage with hemorrhagic fragmentation consistent with fracture. Diagnosis: Hemorrhagic fragmentation consistent with fracture, left hip. [facility]# [id number] [facility]ITAL[facility]
== END 2017-04-16 12:15 | disposition home or self-care (01) | DRG 301 ==
LOC: ER 13:08 → MSI 17:59 → UNDODISIN 04-11 19:21
PROVIDERS: ADMIT Internal Medicine; ATTEND Internal Medicine
PROC: 0SRS0JZ Replacement of Left Hip Joint, Femoral Surface with Synthetic Substitute, Open Approach (ICD-10-PCS; principal; 2017-04-11)
DX: S72.142A Displaced intertrochanteric fracture of left femur, initial encounter for closed fracture (principal); E44.1 Mild protein-calorie malnutrition; G62.9 Polyneuropathy, unspecified; N39.0 Urinary tract infection, site not specified; J44.9 Chronic obstructive pulmonary disease, unspecified; F31.9 Bipolar disorder, unspecified; F17.210 Nicotine dependence, cigarettes, uncomplicated; D64.9 Anemia, unspecified; B19.20 Unspecified viral hepatitis C without hepatic coma; Z82.49 Family history of ischemic heart disease and other diseases of the circulatory system; Z68.29 Body mass index [BMI] 29.0-29.9, adult; D72.829 Elevated white blood cell count, unspecified
CPT/HCPCS: 36415-UA; 71010-TC; 72170-TC; 73501; 80048-TC; 80053-TC; 80061-TC; 80307; 81001-TC; 81025-TC; 82550-TC; 83036-90; 83605; 83735-TC; 83880-TC; 84443-TC; 84484-TC; 85007-TC; 85025-TC; 85027-TC; 85610-TC; 87086-90; 88304-TC; 88312-TC; 93005; 94760; 97530; A4216; J0690; J0696; J1650; J1885; J2250; J2270; J2704; J7030; X3904; X6206; Z7610

== ENCOUNTER 2017-04-19 10:19 | Inpatient (IN) | payer MEDICAID ==
[2017-04-19] MEDS ORDERED: Morphine Sulfate 4 mg/mL 1mL Syr IVP ONE ×2 (10:47→17:26)
--- NOTE | 2017-04-19 10:51 | ED Physician Chart ---
Chief Complaint/HPI - Patient Information Date Seen:: 04/19/17 Time Seen:: 10:30 Chief Complaint:: PAIN IN HER LT HIP History of Present Illness:: This 47-year-old female underwent left hip replacement approximately 10 days ago. When she awoke this morning he had increased pain in the left hip region and she was concerned that the hip might have dislocated or been fractured. She rates the pain as a 9/10 in severity and states that it's worse when she is weightbearing. Patient denies any fever, chills or diaphoresis. The patient denies any recent falls or injury to the left hip region. Allergies:: Allergies Allergy/AdvReac Type Severity Reaction Status Date / Time No Known Allergies Allergy Verified 04/09/17 13:12 Vitals:: Vital Signs - 8 hr 04/19/17 10:23 Temp 97.9 F HR 74 RR 16 BP 132/68 O2 Sat % 97 Review of Systems - Review of Systems General/Constitutional: No fever, No chills, No diaphoresis Skin: No skin lesions, No rash, No bruising, Other (multiple tattoos.) Head: No headache, No light-headedness Eyes: No loss of vision, No diplopia ENT: No earache, No sore throat Neck: No neck pain, No swelling, No stiffness, Mass noted Cardio Vascular: No chest pain, No palpitations, No orthopnea Pulmonary: No SOB, No cough, No sputum GI: No nausea, No vomiting, No diarrhea, No constipation G/U: No dysuria, No frequency, No hematuria Underwear Finisher: No abnormal vaginal bleed (pain in the region of the left hip.) Musculoskeletal: No back pain, No muscle pain Psychiatric: Prior psych history, No suicidal ideation Hematopoietic: No bruising, No lymphadenopathy Allergic/Immuno: No urticaria, No angioedema Neurological: No syncope (weakness in the left lower extremity secondary to pain in the hip region.), No headache, No seizure, No dizziness Other: The patient is mildly confused. Past Medical History - Past Medical History Past Medical History: Other (patient has hepatitis C which was acquired from a tattoo. Has a psychiatric history of anxiety and bipolar disorder with psychotic features.) Family History: None Social History: Smoker, No Alcohol Employment:: Takes Xanax. Surgical History: HIP (approximately 10 days ago.), other Family Medical History - Family Member Mother History Unknown: Yes Hx Family Cancer: No Hx Family Congestive Heart Failure: No Hx Family Hypertension: No Hx Family Diabetes: No Hx Family Seizures: No Hx Family Dementia: No Hx Family AIDS: No Physical Exam - Physical Examination General/Constitutional: Awake, Well-developed, well-nourished, Alert, Non-toxic appearing Other Gen/Cons comments:: Patient is oriented 3. Head: Atraumatic Eyes: Lids, conjuctiva normal, PERRL, EOMI (no nystagmus and no jaundice of the sclera.) Skin: Nl inspection, No rash, No ecchymosis, No lymphadenopathy ENMT: External ears, nose nl, Oropharynx nl, Tonsils nl Other ENMT comments:: Upper dentures. Neck: Nontender, Full ROM w/o pain, No JVD, No nuchal rigidity, No mass, No stridor Respiratory: Nl effort/Exclusion, Clear to Auscultation Other Respiratory comments:: Occasional expiratory wheezes with no rales or rhonchi. Cardio Vascular: RRR, No murmur, gallop, rubs, NL S1 S2 Other Cardio Vascular comments:: Good distal pulses all 4 extremities. GI: No tenderness/rebounding/guarding, No organomegaly, No hernia, Normal BS's, Nondistended, No mass/bruits, No McBurney tenderness, Rectum exam nl Other GI comments:: Rectal examination deferred at my discretion. : No CVA tenderness Extremities: No tenderness or effusion, No edema Other Extremities comments:: The patient has a surgical incision over the left hip with 22 brianne. There is no dehiscence of the skin, minimal ecchymosis and no erythema, warmth or drainage. The left lower extremity is shorter than the right. Neuro/Psych: Alert/oriented, Normal sensory exam Misc: Normal back, No paraspinal tenderness Labs/Radiology/EKG Results - Radiology Results Results: 2 views of the left hip are positive for dislocation of the hip. No acute fractures. The prosthetic appears to be well seated in the femur. No soft tissue abnormalities. Impression: Dislocation of the left hip. Assessment - Assessment General Assessment: CASE SUMMARY: This 47 to old female had a left hip implant 10 days ago. She was doing well this AM when she had onset of pain in the LT hip area and was unable to weight bear or walk. The leg was shortened compared to the RIGHT leg. The surgical incission was clean and did not appear infected. X-ray showed a dislocation of he left hip. I made multiple attempts to reduce the hip but was unsuccessful. The patient was admitted to Dr. Metcalf and consultation with DR. Oviedo her orthopedic surgeon. Admitted in stable condition. MDM DDX LT HIP PAIN: NOT hip fracture based on X-ray studies. NOT Pelvic fracture based on X-ray studies. NOT hip infection based on exam and alternate diagnosis of hip dislocation. ED Septic Shock - . Is Septic Shock (SBP<90, OR Lactate>4 mmol\L) present?: No - <6hrs of presentation: Vital Signs: Vital Signs - 8 hr 04/19/17 10:23 Temp 97.9 F HR 74 RR 16 BP 132/68 O2 Sat % 97 Reassessment (Disposition) - Reassessment Reassessment Condition:: Unchanged - Diagnosis Diagnosis:: DISLOCATION LEFT HIP. - Patient Disposition Discharge/Transfer:: Acute Care w/in this hosp Accepting Physician:: DR. HERNANDEZ ED Discharge Plan - Patient Disposition Admit/Discharge/Transfer: Acute Care w/in this hosp
--- NOTE | 2017-04-19 11:49 | Diagnostic Imaging Report ---
Left hip 2 views Indication: pain Comparison: Left hip x-rays on 04/14/2017 Findings: Left hip arthroplasty seen with superolateral dislocation of the femoral component. No obvious fracture identified. Postsurgical changes are seen in this region. Small calcifications are seen adjacent to the lesser trochanter. Impression: Superior/lateral dislocation of the left hip prosthesis. Clinical correlation and follow-up is recommended. No gross acute fracture identified. In the setting of trauma, if clinical symptoms persist and there is continued concern for an occult fracture, follow up exams in 5-7 days is suggested.
[2017-04-19] MEDS ORDERED: Midazolam 1mg/ml 2 ml vial IV ONE ×3 (14:01→14:56)
[2017-04-19] MEDS ORDERED: Morphine Sulfate 4 mg/mL 1mL Syr IM ONE (17:28)
[2017-04-19 19:36] LABS: ANION GAP 11.8 (7.0-16.0); BUN - UREA NITROGEN 12 mg/dL (7-25); BUN/CREATININE RATIO 17.1; CALCIUM SERUM 9.2 mg/dL (8.6-10.3); CARBON DIOXIDE 19.7 mEq/L (21.0-31.0); CHLORIDE 101 mEq/L (98-107); CREATININE - SERUM 0.7 mg/dL (0.6-1.2); GLUCOSE 106 mg/dL (70-105); POTASSIUM SERUM 4.5 mEq/L (3.5-5.1); SODIUM SERUM 128 mEq/L (136-145)
[2017-04-19] MEDS ORDERED: CARISOPRODOL 250 MG PO SCH (21:00)
[2017-04-19] MEDS: Hydrocodone/APAP 10 mg/325 mg Tab PO PRN (21:17)
--- NOTE | 2017-04-20 03:02 | Admit Criteria Form ---
Admit Criteria Forms - Admit Criteria Diagnosis: MUSCULOSKELETAL DISEASE [facility] Clinical Indications for Admission to Inpatient Care (Place 'X' for any and all applicable criteria): Hospital admission is needed for appropriate care of the patient because of 1 or more of the following: [X]I. Fracture, dislocation, or other musculoskeletal injury requiring inpatient care(medical) as indicated by 1 or more of the following(4)(5)(6)(7) [ ]a) Vertebral fracture requiring observation for instability or neurologic compromise (8) [ ]b) Compartment syndrome (proven or cannot be ruled out during observation level of care) (9) [ ]c) Limb-threatening injury [ ]d) Major injury requiring inpatient stabilization such as traction initiation or external fixation before internal fixation or closure of complex or open fracture [ X]e) Major injury requiring inpatient treatment after emergency or observation level care (as appropriate) [ X]f) Severe pain requiring acute inpatient management [ ]g) Injury with suspicion of abuse or neglect (eg., child, dependent elderly) [ ]II. Newly diagnosed or suspected bone, joint, or orthopedic device infection (e.g., osteomyelitis, septic arthritis) needing 1 or more of the following(1)(2)(3) [ ]a) IV antibiotics that cannot be initiated in other than inpatient setting (e.g., patient too unstable or home infusion not available) [ ]b) Device removal or replacement [ ]c) Bone or soft tissue debridement [ ]d) Joint drainage (drain placement or repetitive aspirations) [ ]III. Severe rheumatologic disease (e.g., systemic lupus erythematosus, rheumatoid arthritis) with complications or comorbidities (Also use Optimal Recovery Care Criteria or General Recovery Criteria as appropriate on the basis of predominant condition), including 1 or more of the following( 10)(11)(12)(13) [ ]a) Severe infection (e.g., WOOD TYPE FINISHER infection, sepsis) (14) [ ]b) Respiratory complications, including 1 or more of the following : [ ]i) Pleural effusion with respiratory compromise [ ]ii) Pulmonary hypertension with congestive failure [ ]iii) Respiratory failure [ ]iv) Pulmonary hemorrhage (15) [ ]c) Hematologic disease, including 1 or more of the following: [ ]i) Coagulopathy with bleeding [ ]ii) Thrombosis with hypercoagulable state [ ]iii) Thrombotic thrombocytopenic purpura [ ]d) Cerebritis with seizures, psychosis, or other severe abnormalities [ ]e) Vertebral destruction with monitoring needed for cervical myelopathy& possible respiratory compromise [ ]f) Exacerbation that requires inpatient treatment (e.g., intravenous immunosuppression) (16) [ ]g) Acute renal failure [ ]h) Cerebritis with seizures, psychosis, Altered mental status, or other neurologic abnormalities [ ]i) Pericardial effusion with tamponade [ ]j) Vertebral destruction, with monitoring needed for cervical myelopathy and possible respiratory compromise [ ]IV. Severe vasculitis with complications or comorbidities (Also use Optimal Recovery Care Criteria General Recovery Criteria as appropriate on the basis of predominant condition), including 1 or more of the following(11)(12)(17)(18)(19)(20) [ ]a) Exacerbation that requires inpatient treatment (e.g., intravenous immunosuppression) (19)(21) [ ]b) Pulmonary hemorrhage (15) [ ]c) WOOD TYPE FINISHER vasculitis with seizures, psychosis, Altered mental status that is severe or persistent, or other severe abnormalities (22) [ ]d) Cerebral infarction [ ]e) Gastrointestinal ischemia [ ]f) Gangrene or threatened amputation [ ]g) Renal failure (16) [ ]h) Other significant complications of vasculitis ( eg., tissue or organ ischemia, organ dysfunction ) [ ]V. Severe myopathy as indicated by 1 or more of the following (28)(29) [ ]a) New onset of airway compromise or inability to swallow [ ]b) Respiratory deterioration with observation needed for impending respiratory failure [ ]c) Exacerbation that requires inpatient treatment (e.g., intravenous immunosuppression) [ ]. Severe crystal gout (arthropathy) indicated by 1 or more of the following (23)(24) [ ]a) Severe pain requiring acute inpatient management [ ]b) Exacerbation that requires inpatient treatment (e.g., intravenous treatment) [ ]VII.Rhabdomyolysis and 1 or more of the following (25)(26)(27) [ ]a) Acute renal failure [ ]b) Need for intravenous hydration after emergency or observation level care (as appropriate) [ ]c) Inability to maintain oral hydration [ ]d) Change in mental status [ ]e) Electrolyte abnormality that remains after emergency or observation level care (as appropriate) [ ]VIII Post amputation complication, as indicated by ANY ONE of the following [ ]a) Infection [ ]b) Dehiscence [ ]c) Myodesis failure [ ]IX. Severe pain requiring acute inpatient management due to musculoskeletal condition [ ]X. Musculoskeletal Disease and ALL of the following: [ ]a) Symptom or finding for which emergency and observation care have failed or are not considered appropriate (Use General Criteria: Observation Care as appropriate) [ ]b) Presence of ANY ONE of the following [ ]i) A General Admission Criteria [ ]ii) A Pediatric General Admission Criteria The [facility] content created by [facility] has been revised. The portions of the content which have been revised are identified through the use of italic text or in bold, and [facility] has neither reviewed nor approved the modified material. All other unmodified content is copyright [facility]. Please see references footnoted in the original [facility] edition 2016 Admit Criteria Met?: Yes
[2017-04-20] MEDS: Hydrocodone/APAP 10 mg/325 mg Tab PO PRN (03:36)
--- NOTE | 2017-04-20 07:09 | History and Physical ---
History of Present Illness - HPI Chief Complaint: Left Hip Pain HPI: 47 year old female who recently underwent a left hip replacement 2 weeks ago presents to [facility] ER. for left hip pain. Patient states that she awoke from bed yesterday with increased pain to the left hip. She rated the pain to be 9/10 in severity. She was subsequently seen in the ER and an Xray revealed dislocation of the left hip. She denies any fever, chills, or diaphoresis. Vital Signs: Last Vital Signs Temp 97.4 F 04/20/17 04:00 Pulse 105 04/20/17 04:00 Resp 19 04/20/17 04:00 BP 117/65 04/20/17 04:00 Pulse Ox 98 04/20/17 04:00 Past Medical History Cardiovascular: Report: No Pertinent Hx Pulmonary: Report: No Pertinent Hx CONSULTING NURSE: Report: No Pertinent Hx GI: Report: Other (hepatitis C) Psych: Report: Anxiety, Bipolar Musculoskeletal: Report: Other (left hip pain, s/p left hip arthroplasty) Rheumatologic: Report: No pertinent Hx Infectious Disease: Report: No Pertinent Hx Renal/: Report: No Pertinent Hx Endocrine: Report: No Pertinent Hx Dermatology: Report: No Pertinent Hx - Past Surgical History Past Surgical History: Other (L Hip Arthroplasty) Family Medical History - Family Member Mother History Unknown: Yes Hx Family Cancer: No Hx Family Congestive Heart Failure: No Hx Family Hypertension: No Hx Family Diabetes: No Hx Family Seizures: No Hx Family Dementia: No Hx Family AIDS: No Social History Smoke: # pack years (history of smoking) Alcohol: None Drugs: None Lives: Alone - Medications Home Medications: Home Medication Medication Instructions Recorded Type Aspirin [Ecotrin] 81 mg PO DAILY 04/09/17 History Carisoprodol [Soma] 250 mg PO HS 04/09/17 History Gabapentin [Neurontin] 600 mg PO TID 04/09/17 History QUEtiapine Fumarate [SEROquel] 300 mg PO HS 04/09/17 History Ziprasidone HCl [Geodon] 60 mg PO DAILY 04/09/17 History - Allergies Allergies/Adverse Reactions: Allergies Allergy/AdvReac Type Severity Reaction Status Date / Time No Known Allergies Allergy Verified 04/09/17 13:12 Review of Systems - Review of Systems Constitutional: Report: No Significant Eyes: Report: No Significant ENT: Report: No Significant Respiratory: Report: No Significant Cardiovascular: Report: No Significant Gastrointestinal: Report: No Significant Genitourinary: Report: No Significant Musculoskeletal: Report: Other (left hip pain) Skin: Report: No Significant Neurological: Report: No Significant Physical Exam - Physical Exam HEENT: Report: Ears Nose Throat within normal limits, Pharnyx within normal limits Neck: Report: Within normal limits Cardiovascular Systems: Report: +s1/s2 noted, Regular, Rate and Rhythm Respiratory: Report: Breath Sounds are within normal limits Abdomen: Report: Non-tender to palpation Skin: Report: Color of skin is within normal limits Neuro/Psych: Report: Mood affect is within normal limits, A+Ox3 - Lab Results All Lab Results last 24 hours: Laboratory Last Values Sodium 128 mEq/L (136-145) L 04/19/17 19:08 Potassium 4.5 mEq/L (3.5-5.1) 04/19/17 19:08 Chloride 101 mEq/L (98-107) 04/19/17 19:08 Carbon Dioxide 19.7 mEq/L (21.0-31.0) L 04/19/17 19:08 Anion Gap 11.8 (7.0-16.0) 04/19/17 19:08 BUN 12 mg/dL (7-25) 04/19/17 19:08 Creatinine 0.7 mg/dL (0.6-1.2) 04/19/17 19:08 Est GFR ( Amer) > 60.0 ml/min (>90) 04/19/17 19:08 Est GFR (Non-Af Amer) > 60.0 ml/min 04/19/17 19:08 BUN/Creatinine Ratio 17.1 04/19/17 19:08 Glucose 106 mg/dL (70-105) H 04/19/17 19:08 Calcium 9.2 mg/dL (8.6-10.3) 04/19/17 19:08 Laboratory Results - last 24 hr 04/19/17 19:08 Sodium 128 L Potassium 4.5 Chloride 101 Carbon Dioxide 19.7 L Anion Gap 11.8 BUN 12 Creatinine 0.7 Est GFR ( Amer) > 60.0 Est GFR (Non-Af Amer) > 60.0 BUN/Creatinine Ratio 17.1 Glucose 106 H Calcium 9.2 - Assessment Assessment: Left hip pain secondary to hip dislocation hyponatremia hepatitis C anxiety disorder bipolar disorder - Plan Plan: Left hip pain secondary to dislocation ... will order ortho consult with Dr. Sullivan. Will order CBC,CMP. Pain control Hyponatremia ... will start patient on IV fluids..NS@50cc/hr Anxiety disoder/Depression by history.
--- NOTE | 2017-04-20 10:49 | Diagnostic Imaging Report ---
Left hip 2 views Indication: Left hip prosthesis dislocation, post reduction attempt Comparison: none Findings: There is persistent superior lateral dislocation of the left hip joint prosthesis. No evidence of a fracture. Postsurgical changes are noted. Small calcifications are seen adjacent to the lesser trochanter. Impression: Persistent superior and lateral dislocation of the left hip joint prosthesis. In the setting of trauma, if clinical symptoms persist and there is continued concern for an occult fracture, follow up exams in 5-7 days is suggested.
[2017-04-20] MEDS: Sodium Chloride 0.9% 1,000 ML IV SCH (11:28)
[2017-04-20 11:36] LABS: MEAN CELL VOLUME 86.6 fl (81-100); MEAN CORPUSCULAR HEMOGLOBIN 29.5 pg (27.0-31.0); MEAN PLATELET VOLUME 7.5 fl; RED BLOOD COUNT 2.57 Mil/cmm (3.80-5.10); RED CELL DISTRIBUTION WIDTH 13.9 % (11.5-20.0)
[2017-04-20 11:50] LABS: HEMATOCRIT 22.2 % (35.0-45.0); HEMOGLOBIN 7.6 gm/dL (11.7-15.5); PLATELET COUNT 531 Th/cmm (150-400); WHITE BLOOD COUNT 13.7 Th/cmm (4.8-10.8)
[2017-04-20 11:53] LABS: INR 0.93 (0.5-1.4); PROTHROMBIN TIME (TEST) 9.7 SECONDS (9.5-11.5)
[2017-04-20 11:56] LABS: ANION GAP 5.4 (7.0-16.0); BUN - UREA NITROGEN 9 mg/dL (7-25); CALCIUM SERUM 8.4 mg/dL (8.6-10.3); CARBON DIOXIDE 27.2 mEq/L (21.0-31.0); CHLORIDE 105 mEq/L (98-107); CREATININE - SERUM 0.5 mg/dL (0.6-1.2); GLUCOSE 122 mg/dL (70-105); POTASSIUM SERUM 3.6 mEq/L (3.5-5.1); SODIUM SERUM 134 mEq/L (136-145)
[2017-04-20 12:39] LABS: BAND NEUTROPHILE 3 % (0-10); METAMYELOCYTE 3 % (0-0); NEUTROPHILS 71 % (40-80); PLATELET ESTIMATE INCREASED PLATELETS (NORMAL); PLATELET MORPHOLOGY NORMAL (NORMAL); POIKILOCYTOSIS 1+; TOTAL CELLS COUNTED 100
[2017-04-20] MEDS: cefTRIAXone 1 GM in Sodium Chloride 0.9% 50 ML IV SCH (15:02)
[2017-04-20 23:53] VITALS: BP 130/82
[2017-04-21 04:55] LABS: URINE BILIRUBIN NEGATIVE (NEGATIVE); URINE BLOOD NEGATIVE (NEGATIVE); URINE COLOR STRAW; URINE GLUCOSE (UA) NEGATIVE (NEGATIVE); URINE KETONE NEGATIVE (NEGATIVE); URINE PH 6.5; URINE PROTEIN NEGATIVE (NEGATIVE); URINE RBC 0-2 /hpf (0-5); URINE UROBILINOGEN 0.2 E.U./dL (0.2 - 1.0)
[2017-04-21 04:56] LABS: URINE BACTERIA OCCASIONAL /hpf (NONE SEEN); URINE EPITHELIAL CELLS FEW /lpf (FEW)
--- NOTE | 2017-04-21 07:32 | General Progress Note ---
Subjective - Review of Systems Service Date: 04/21/17 Subjective: Patient was seen and examined. Here for L hip dislocation. For orthopedic procedure this AM. S/P blood transfusion 2 units packed RBCs Objective - Results Result Diagrams: 04/20/17 11:25 04/20/17 11:25 Recent Labs: Laboratory Last Values WBC 13.7 Th/cmm (4.8-10.8) H D 04/20/17 11:25 RBC 2.57 Mil/cmm (3.80-5.10) L 04/20/17 11:25 Hgb 7.6 gm/dL (11.7-15.5) L* 04/20/17 11:25 Hct 22.2 % (35.0-45.0) L* D 04/20/17 11:25 MCV 86.6 fl (81-100) 04/20/17 11:25 MCH 29.5 pg (27.0-31.0) 04/20/17 11:25 MCHC Differential 34.0 pg (28.0-36.0) 04/20/17 11:25 RDW 13.9 % (11.5-20.0) 04/20/17 11:25 Plt Count 531 Th/cmm (150-400) H D 04/20/17 11:25 MPV 7.5 fl 04/20/17 11:25 Band Neutrophils % 3 % (0-10) 04/20/17 11:25 Neutrophils (Manual) 71 % (40-80) 04/20/17 11:25 Lymphocytes 9 % (20-50) L 04/20/17 11:25 Monocytes 14 % (2-10) H 04/20/17 11:25 Metamyelocytes 3 % (0-0) H 04/20/17 11:25 Platelet Estimate INCREASED PLATELETS (NORMAL) 04/20/17 11:25 Platelet Morphology NORMAL (NORMAL) 04/20/17 11:25 Poikilocytosis 1+ 04/20/17 11:25 RBC Morph Micro Appear ABNORMAL (NORMAL) 04/20/17 11:25 PT 9.7 SECONDS (9.5-11.5) 04/20/17 11:25 INR 0.93 (0.5-1.4) 04/20/17 11:25 Sodium 134 mEq/L (136-145) L 04/20/17 11:25 Potassium 3.6 mEq/L (3.5-5.1) 04/20/17 11:25 Chloride 105 mEq/L (98-107) 04/20/17 11:25 Carbon Dioxide 27.2 mEq/L (21.0-31.0) 04/20/17 11:25 Anion Gap 5.4 (7.0-16.0) L 04/20/17 11:25 BUN 9 mg/dL (7-25) 04/20/17 11:25 Creatinine 0.5 mg/dL (0.6-1.2) L 04/20/17 11:25 Est GFR ( Amer) > 60.0 ml/min (>90) 04/20/17 11:25 Est GFR (Non-Af Amer) > 60.0 ml/min 04/20/17 11:25 BUN/Creatinine Ratio 18.0 04/20/17 11:25 Glucose 122 mg/dL (70-105) H 04/20/17 11:25 Calcium 8.4 mg/dL (8.6-10.3) L 04/20/17 11:25 Urine Source RANDOM 04/20/17 22:50 Urine Color STRAW 04/20/17 22:50 Urine Clarity CLEAR (CLEAR) 04/20/17 22:50 Urine pH 6.5 04/20/17 22:50 Ur Specific [place] < 1.005 (1.005-1.030) L 04/20/17 22:50 Urine Protein NEGATIVE mg/dL (NEGATIVE) 04/20/17 22:50 Urine Glucose (UA) NEGATIVE mg/dL (NEGATIVE) 04/20/17 22:50 Urine Ketones NEGATIVE mg/dL (NEGATIVE) 04/20/17 22:50 Urine Blood NEGATIVE (NEGATIVE) 04/20/17 22:50 Urine Nitrate NEGATIVE (NEGATIVE) 04/20/17 22:50 Urine Bilirubin NEGATIVE (NEGATIVE) 04/20/17 22:50 Urine Urobilinogen 0.2 E.U./dL (0.2 - 1.0) 04/20/17 22:50 Ur Leukocyte Esterase TRACE (NEGATIVE) H 04/20/17 22:50 Urine RBC 0-2 /hpf (0-5) 04/20/17 22:50 Urine WBC 2-5 /hpf (0-5) 04/20/17 22:50 Ur Epithelial Cells FEW /lpf (FEW) 04/20/17 22:50 Urine Bacteria OCCASIONAL /hpf (NONE SEEN) 04/20/17 22:50 Blood Type A NEGATIVE 04/20/17 13:00 Antibody Screen NEGATIVE 04/20/17 13:00 Crossmatch See Detail 04/20/17 13:00 - Physical Exam Vitals and I&O: Vital Signs Temp 98.7 F 04/21/17 00:00 Pulse 104 04/21/17 00:00 Resp 17 04/21/17 00:00 BP 124/81 04/21/17 00:00 Pulse Ox 97 04/21/17 00:00 Intake & Output 04/20/17 04/21/17 04/21/17 18:59 06:59 18:59 Intake Total 1100 900 Output Total 1000 Balance 100 900 Weight (lbs) 75.75 kg 73.663 kg Intake: Oral 1100 400 Other 500 Output: Urine 1000 Other: # Voids 3 # Bowel Movements 0 0 Stool Characteristics Soft Active Medications: Current Medications Acetaminophen/Hydrocodone Bitart ([place] 10 Mg/325 Mg) 1 tab PO Q6H PRN PRN Reason: Pain (Moderate) Stop: 06/18/17 18:57 Last Admin: 04/20/17 03:36 Dose: 1 tab Aspirin (Ecotrin) 81 mg PO DAILY [facility] Stop: 06/19/17 08:59 Last Admin: 04/20/17 08:34 Dose: 81 mg Carisoprodol (Soma) 350 mg PO HS [facility] Stop: 06/19/17 20:59 Last Admin: 04/20/17 21:08 Dose: 350 mg Gabapentin (Neurontin) 600 mg PO TID [facility] Stop: 06/18/17 20:59 Last Admin: 04/20/17 21:08 Dose: 600 mg Sodium Chloride (Nacl 0.9%) 1,000 mls @ 50 mls/hr IV .Q20H [facility] Stop: 06/19/17 07:15 Last Admin: 04/20/17 11:28 Dose: 50 mls/hr Ceftriaxone Sodium 1 gm/ (Sodium Chloride) 50 mls @ 100 mls/hr IV Q24HR [facility] Stop: 06/19/17 12:14 Last Admin: 04/20/17 15:02 Dose: 100 mls/hr Morphine Sulfate (Morphine) 6 mg IV Q8H [facility] Stop: 06/19/17 00:00 Last Admin: 04/21/17 00:43 Dose: 6 mg Quetiapine Fumarate (Seroquel) 300 mg PO HS [facility] PRN Reason: Protocol Stop: 06/18/17 20:59 Last Admin: 04/20/17 21:08 Dose: 300 mg Ziprasidone (Geodon) 60 mg PO DAILY [facility] Stop: 06/19/17 08:59 Last Admin: 04/20/17 08:34 Dose: 60 mg General: Alert, Oriented x3 HEENT: Atraumatic, PERRLA, EOMI Neck: Supple Cardiovascular: Regular rate, Normal S1, Normal S2 Lungs: Clear to auscultation Abdomen: Bowel sounds, Soft - Procedures Procedures: Procedures Procedure Code Date DELIVERY ONLY 55779 12/19/04 INJECT RH IMMUNE GLOBUL 99.11 11/09/04 LOW CERVICAL 74.1 12/19/04 REPLACE OF L HIP JT, FEMORAL WITH SYNTH SUB, OPEN APPROACH [id number] 04/09/17 TREAT THIGH FRACTURE 59724 04/09/17 Assessment/Plan - Problem List Patient Problems: All Active Problems Anemia (Acute) D64.9 Anxiety (Acute) F41.9 Dislocation of left hip (Acute) S73.005A Hepatitis C (Acute) Hyponatremia (Acute) E87.1 Left hip pain (Acute) M25.552 - Assessment Assessment: Left hip pain secondary to hip dislocation hyponatremia hepatitis C anxiety disorder bipolar disorder - Plan Plan: Left hip pain secondary to dislocation ... patient for orthopedic procedure to reduce the left hip. Hyponatremia ... improving. will continue IV fluids..NS@50cc/hr Psychiatric disorder .... will continue home medications. Anemia S/P blood transfusion of 2 units of packed RBC's. repeat CBC this AM
[2017-04-21] MEDS: cefTRIAXone 1 GM in Sodium Chloride 0.9% 50 ML IV SCH (11:57)
[2017-04-21] MEDS ORDERED: Meperidine 25 mg/mL 1mL Syr IVP PRN (13:32)
[2017-04-21] MEDS ORDERED: Lactated Ringer 1,000 ML IV SCH (13:45)
[2017-04-21] MEDS ORDERED: Midazolam 1mg/ml 2 ml vial IV ONE (14:12)
[2017-04-21 14:56] LABS: HEMATOCRIT 32.4 % (35.0-45.0); HEMOGLOBIN 10.8 gm/dL (11.7-15.5)
[2017-04-21] MEDS: Sodium Chloride 0.9% 1,000 ML IV SCH (16:20)
[2017-04-22] MEDS: Hydrocodone/APAP 10 mg/325 mg Tab PO PRN ×3 (04:10→20:38)
--- NOTE | 2017-04-22 08:32 | General Progress Note ---
Subjective - Review of Systems Service Date: 04/22/17 Subjective: Patient was seen and examined. Patient currently on Morphine and [place] for pain control. Patient states that she has a prior history of psychiatric disorder. Patient has had no bowel movement today. Patient underwent closed reduction of the left hip. Objective - Results Result Diagrams: 04/21/17 14:50 04/20/17 11:25 Recent Labs: Laboratory Last Values WBC 13.7 Th/cmm (4.8-10.8) H D 04/20/17 11:25 RBC 2.57 Mil/cmm (3.80-5.10) L 04/20/17 11:25 Hgb 10.8 gm/dL (11.7-15.5) L D 04/21/17 14:50 Hct 32.4 % (35.0-45.0) L D 04/21/17 14:50 MCV 86.6 fl (81-100) 04/20/17 11:25 MCH 29.5 pg (27.0-31.0) 04/20/17 11:25 MCHC Differential 34.0 pg (28.0-36.0) 04/20/17 11:25 RDW 13.9 % (11.5-20.0) 04/20/17 11:25 Plt Count 531 Th/cmm (150-400) H D 04/20/17 11:25 MPV 7.5 fl 04/20/17 11:25 Band Neutrophils % 3 % (0-10) 04/20/17 11:25 Neutrophils (Manual) 71 % (40-80) 04/20/17 11:25 Lymphocytes 9 % (20-50) L 04/20/17 11:25 Monocytes 14 % (2-10) H 04/20/17 11:25 Metamyelocytes 3 % (0-0) H 04/20/17 11:25 Platelet Estimate INCREASED PLATELETS (NORMAL) 04/20/17 11:25 Platelet Morphology NORMAL (NORMAL) 04/20/17 11:25 Poikilocytosis 1+ 04/20/17 11:25 RBC Morph Micro Appear ABNORMAL (NORMAL) 04/20/17 11:25 PT 9.7 SECONDS (9.5-11.5) 04/20/17 11:25 INR 0.93 (0.5-1.4) 04/20/17 11:25 Sodium 134 mEq/L (136-145) L 04/20/17 11:25 Potassium 3.6 mEq/L (3.5-5.1) 04/20/17 11:25 Chloride 105 mEq/L (98-107) 04/20/17 11:25 Carbon Dioxide 27.2 mEq/L (21.0-31.0) 04/20/17 11:25 Anion Gap 5.4 (7.0-16.0) L 04/20/17 11:25 BUN 9 mg/dL (7-25) 04/20/17 11:25 Creatinine 0.5 mg/dL (0.6-1.2) L 04/20/17 11:25 Est GFR ( Amer) > 60.0 ml/min (>90) 04/20/17 11:25 Est GFR (Non-Af Amer) > 60.0 ml/min 04/20/17 11:25 BUN/Creatinine Ratio 18.0 04/20/17 11:25 Glucose 122 mg/dL (70-105) H 04/20/17 11:25 Calcium 8.4 mg/dL (8.6-10.3) L 04/20/17 11:25 Urine Source RANDOM 04/20/17 22:50 Urine Color STRAW 04/20/17 22:50 Urine Clarity CLEAR (CLEAR) 04/20/17 22:50 Urine pH 6.5 04/20/17 22:50 Ur Specific [place] < 1.005 (1.005-1.030) L 04/20/17 22:50 Urine Protein NEGATIVE mg/dL (NEGATIVE) 04/20/17 22:50 Urine Glucose (UA) NEGATIVE mg/dL (NEGATIVE) 04/20/17 22:50 Urine Ketones NEGATIVE mg/dL (NEGATIVE) 04/20/17 22:50 Urine Blood NEGATIVE (NEGATIVE) 04/20/17 22:50 Urine Nitrate NEGATIVE (NEGATIVE) 04/20/17 22:50 Urine Bilirubin NEGATIVE (NEGATIVE) 04/20/17 22:50 Urine Urobilinogen 0.2 E.U./dL (0.2 - 1.0) 04/20/17 22:50 Ur Leukocyte Esterase TRACE (NEGATIVE) H 04/20/17 22:50 Urine RBC 0-2 /hpf (0-5) 04/20/17 22:50 Urine WBC 2-5 /hpf (0-5) 04/20/17 22:50 Ur Epithelial Cells FEW /lpf (FEW) 04/20/17 22:50 Urine Bacteria OCCASIONAL /hpf (NONE SEEN) 04/20/17 22:50 Blood Type A NEGATIVE 04/20/17 13:00 Antibody Screen NEGATIVE 04/20/17 13:00 Crossmatch See Detail 04/20/17 13:00 - Physical Exam Vitals and I&O: Vital Signs Temp 98.6 F 04/22/17 04:00 Pulse 94 04/22/17 04:00 Resp 19 04/22/17 04:00 BP 123/85 04/22/17 04:00 Pulse Ox 98 04/22/17 04:00 Intake & Output 04/21/17 04/22/17 04/22/17 18:59 06:59 18:59 Intake Total 1050 600 Balance 1050 600 Weight (lbs) 73.709 kg Intake: Intake, IV Amount 1050 Sodium Chloride 0.9% 1, 1000 000 ml @ 50 mls/hr IV . Q20H [facility] Rx#:[id number] cefTRIAXone 1 gm In 50 Sodium Chloride 0.9% 50 ml @ 100 mls/hr IV Q24HR [facility] Rx#:[id number] Oral 600 Other: # Voids 6 # Bowel Movements 0 Stool Characteristics Soft Formed Active Medications: Current Medications Acetaminophen/Codeine Phosphate (Tylenol W/Codeine #3) 1 tab PO Q4H PRN PRN Reason: Pain (Moderate) Stop: 06/21/17 02:25 Acetaminophen/Hydrocodone Bitart ([place] 10 Mg/325 Mg) 1 tab PO Q6H PRN PRN Reason: Pain (Moderate) Stop: 06/18/17 18:57 Last Admin: 04/22/17 04:10 Dose: 1 tab Aspirin (Ecotrin) 81 mg PO DAILY [facility] Stop: 06/19/17 08:59 Last Admin: 04/21/17 08:54 Dose: 81 mg Carisoprodol (Soma) 350 mg PO HS [facility] Stop: 06/19/17 20:59 Last Admin: 04/21/17 20:47 Dose: 350 mg Cephalexin Monohydrate (Keflex) 250 mg PO QID [facility] Stop: 04/29/17 02:23 Last Admin: 04/22/17 03:05 Dose: 250 mg Gabapentin (Neurontin) 600 mg PO TID [facility] Stop: 06/18/17 20:59 Last Admin: 04/21/17 20:47 Dose: 600 mg Sodium Chloride (Nacl 0.9%) 1,000 mls @ 50 mls/hr IV .Q20H [facility] Stop: 06/19/17 07:15 Last Admin: 04/21/17 16:20 Dose: 50 mls/hr Lactated Ringer's (Lactated Ringer) 1,000 mls @ 0 mls/hr IV .Q0M [facility] PRN Reason: TKO Stop: 04/22/17 13:44 Meperidine HCl (Demerol) 12.5 mg IVP UD PRN PRN Reason: POST-OP PAIN Stop: 04/22/17 13:31 Last Admin: 04/21/17 20:47 Dose: 12.5 mg Morphine Sulfate (Morphine) 6 mg IV Q8H [facility] Stop: 06/19/17 00:00 Last Admin: 04/22/17 01:07 Dose: 6 mg Ondansetron HCl (Zofran) 4 mg IV PRN PRN PRN Reason: Nausea / Vomiting Stop: 04/22/17 13:31 Quetiapine Fumarate (Seroquel) 300 mg PO HS [facility] PRN Reason: Protocol Stop: 06/18/17 20:59 Last Admin: 04/21/17 20:47 Dose: 300 mg Ziprasidone (Geodon) 60 mg PO DAILY [facility] Stop: 06/19/17 08:59 Last Admin: 04/21/17 08:48 Dose: 60 mg General: Alert, Oriented x3 HEENT: Atraumatic, PERRLA, EOMI Neck: Supple Cardiovascular: Regular rate, Normal S1, Normal S2 Lungs: Clear to auscultation Abdomen: Bowel sounds, Soft - Procedures Procedures: Procedures Procedure Code Date BLOOD TRANSFUSION SERVICE 60248 04/19/17 DELIVERY ONLY 92388 12/19/04 INJECT RH IMMUNE GLOBUL 99.11 11/09/04 LOW CERVICAL 74.1 12/19/04 REPLACE OF L HIP JT, FEMORAL WITH SYNTH SUB, OPEN APPROACH [id number] 04/09/17 TRANSFUSE NONAUT RED BLOOD CELLS IN PERIPH VEIN, PERC 59332V4 04/19/17 TREAT THIGH FRACTURE 55679 04/09/17 Assessment/Plan - Problem List Patient Problems: All Active Problems Anemia (Acute) D64.9 Anxiety (Acute) F41.9 Dislocation of left hip (Acute) S73.005A Hepatitis C (Acute) Hyponatremia (Acute) E87.1 Left hip pain (Acute) M25.552 - Assessment Assessment: Left hip pain secondary to hip dislocation hyponatremia hepatitis C anxiety disorder bipolar disorder constipation s/p closed reduction of the left hip nicotine dependency. - Plan Plan: S/p closed reduction of the Left hip pain ... continue current treatment per ortho. follow up as outpatient. Hyponatremia ... improving. will continue IV fluids..NS@50cc/hr Psychiatric disorder .... will continue home medications. Will obtain psychiatric evaluation. Anemia S/P blood transfusion of 2 units of packed RBC's.-- repeat CBC this AM Nicotine dependency -- will order nicotine patch constipation ... will order stool softeners.
[2017-04-22] MEDS: Nicotine 14 mg/24 hr Tdm TD SCH (09:39)
--- NOTE | 2017-04-22 12:28 | Operative Report ---
DATE OF SURGERY: 04/21/2017 PREOPERATIVE DIAGNOSIS: Closed dislocation hemiarthroplasty prosthesis, left hip. POSTOPERATIVE DIAGNOSIS: Closed dislocation hemiarthroplasty prosthesis, left hip. SURGEON: Angel Mcdonough M.D. ROUSTABOUT SUPERVISOR: None. ANESTHESIOLOGIST: Dr. Akil Bright M.D. ANESTHESIA: General anesthesia. PROCEDURE: 1. Closed reduction dislocated left hemiarthroplasty hip prosthesis. 2. Application of bilateral leg casts for postop stabilization of the left hip. INDICATIONS FOR PROCEDURE: The patient underwent surgery 10 days ago -- hemiarthroplasty, left hip for fractured femoral neck. Postoperatively, she was directed to be on a foam abduction pillow, except when up with therapy and a walker for partial weightbearing and assistance. She was noncompliant and get out of bed, went outside in a wheelchair, smoked and at one point fell out of her wheelchair. When released from the hospital, she was instructed to use the abduction pillow, except when actually walking with the walker, partial weightbearing and her left leg slightly abducted and the toes turned out. She came into the Emergency Room at [facility] 04/19/2017, complaining of left hip pain -- she had dislocated her left hip prosthesis. Attempts were made to reduce the dislocated hip by the ER personnel and they were unsuccessful. Therefore, she was admitted and readied for the procedure to be done by me today. DESCRIPTION OF PROCEDURE: Following the reduction it is planned to place her in casts on both legs with a rigid bar between the legs, keeping the left hip slightly abducted and externally rotated so it will be secure and not dislocate in this noncompliant patient for a period of 4-6 weeks to allow for healing. She has certainly ripped and torn loose the repaired capsule restored external rotator muscles done at the time of her original surgery and it would not be feasible to attempt to operate at this time and try and find and repair these ripped and torn structures. Following satisfactory anesthesia by Dr. Bright, the patient was placed in the prone position on the operating table with supportive personnel holding her in place, the left leg was dropped over the side of the table, bringing the hip into 90 degrees of flexion, the hip was internally rotated and downward pressure placed on the femur watching with the C-arm until the prosthetic head came in line with the acetabulum. The hip was then pushed medial frey and brought in the external rotation and extension and the hip reduced. This was checked with the C-arm and we appeared to have a concentric reduction. The hip was held carefully while she was turned supine. The hip was again checked with the C-arm and the reduction remained in place. The long leg cylinder cast was placed on the left leg with the knee flexed 25-30 degrees with the hip slightly abducted and slightly externally rotated. A thigh cylinder was placed on the right leg and a bar placed between the 2 casts keeping the legs and hips abducted and the left hip in slight external rotation. The final results reviewed with the C-arm in the cast and the reduction remained in place. She was allowed to awake and taken to recovery room in good condition. JOB# [id number]
[2017-04-22] MEDS: Sodium Chloride 0.9% 1,000 ML IV SCH (16:44)
[2017-04-23] MEDS: Hydrocodone/APAP 10 mg/325 mg Tab PO PRN ×3 (04:59→21:58)
--- NOTE | 2017-04-23 08:26 | General Progress Note ---
Subjective - Review of Systems Service Date: 04/23/17 Subjective: Patient was seen and examined status post left hip closed reduction. Patient on pain control. BM today and yesterday. Patient evaluated by psychiatry please see dictated report. Continue current treatment per ortho. Objective - Results Result Diagrams: 04/21/17 14:50 04/20/17 11:25 Recent Labs: Laboratory Last Values WBC 13.7 Th/cmm (4.8-10.8) H D 04/20/17 11:25 RBC 2.57 Mil/cmm (3.80-5.10) L 04/20/17 11:25 Hgb 10.8 gm/dL (11.7-15.5) L D 04/21/17 14:50 Hct 32.4 % (35.0-45.0) L D 04/21/17 14:50 MCV 86.6 fl (81-100) 04/20/17 11:25 MCH 29.5 pg (27.0-31.0) 04/20/17 11:25 MCHC Differential 34.0 pg (28.0-36.0) 04/20/17 11:25 RDW 13.9 % (11.5-20.0) 04/20/17 11:25 Plt Count 531 Th/cmm (150-400) H D 04/20/17 11:25 MPV 7.5 fl 04/20/17 11:25 Band Neutrophils % 3 % (0-10) 04/20/17 11:25 Neutrophils (Manual) 71 % (40-80) 04/20/17 11:25 Lymphocytes 9 % (20-50) L 04/20/17 11:25 Monocytes 14 % (2-10) H 04/20/17 11:25 Metamyelocytes 3 % (0-0) H 04/20/17 11:25 Platelet Estimate INCREASED PLATELETS (NORMAL) 04/20/17 11:25 Platelet Morphology NORMAL (NORMAL) 04/20/17 11:25 Poikilocytosis 1+ 04/20/17 11:25 RBC Morph Micro Appear ABNORMAL (NORMAL) 04/20/17 11:25 PT 9.7 SECONDS (9.5-11.5) 04/20/17 11:25 INR 0.93 (0.5-1.4) 04/20/17 11:25 Sodium 134 mEq/L (136-145) L 04/20/17 11:25 Potassium 3.6 mEq/L (3.5-5.1) 04/20/17 11:25 Chloride 105 mEq/L (98-107) 04/20/17 11:25 Carbon Dioxide 27.2 mEq/L (21.0-31.0) 04/20/17 11:25 Anion Gap 5.4 (7.0-16.0) L 04/20/17 11:25 BUN 9 mg/dL (7-25) 04/20/17 11:25 Creatinine 0.5 mg/dL (0.6-1.2) L 04/20/17 11:25 Est GFR ( Amer) > 60.0 ml/min (>90) 04/20/17 11:25 Est GFR (Non-Af Amer) > 60.0 ml/min 04/20/17 11:25 BUN/Creatinine Ratio 18.0 04/20/17 11:25 Glucose 122 mg/dL (70-105) H 04/20/17 11:25 Calcium 8.4 mg/dL (8.6-10.3) L 04/20/17 11:25 Urine Source RANDOM 04/20/17 22:50 Urine Color STRAW 04/20/17 22:50 Urine Clarity CLEAR (CLEAR) 04/20/17 22:50 Urine pH 6.5 04/20/17 22:50 Ur Specific [place] < 1.005 (1.005-1.030) L 04/20/17 22:50 Urine Protein NEGATIVE mg/dL (NEGATIVE) 04/20/17 22:50 Urine Glucose (UA) NEGATIVE mg/dL (NEGATIVE) 04/20/17 22:50 Urine Ketones NEGATIVE mg/dL (NEGATIVE) 04/20/17 22:50 Urine Blood NEGATIVE (NEGATIVE) 04/20/17 22:50 Urine Nitrate NEGATIVE (NEGATIVE) 04/20/17 22:50 Urine Bilirubin NEGATIVE (NEGATIVE) 04/20/17 22:50 Urine Urobilinogen 0.2 E.U./dL (0.2 - 1.0) 04/20/17 22:50 Ur Leukocyte Esterase TRACE (NEGATIVE) H 04/20/17 22:50 Urine RBC 0-2 /hpf (0-5) 04/20/17 22:50 Urine WBC 2-5 /hpf (0-5) 04/20/17 22:50 Ur Epithelial Cells FEW /lpf (FEW) 04/20/17 22:50 Urine Bacteria OCCASIONAL /hpf (NONE SEEN) 04/20/17 22:50 Blood Type A NEGATIVE 04/20/17 13:00 Antibody Screen NEGATIVE 04/20/17 13:00 Crossmatch See Detail 04/20/17 13:00 - Physical Exam Vitals and I&O: Vital Signs Temp 98.6 F 04/23/17 03:56 Pulse 101 04/23/17 03:56 Resp 18 04/23/17 03:56 BP 136/86 04/23/17 03:56 Pulse Ox 98 04/23/17 03:56 Intake & Output 04/22/17 04/23/17 04/23/17 18:59 06:59 18:59 Intake Total 1000 400 Balance 1000 400 Weight (lbs) 73.709 kg Intake: Intake, IV Amount 1000 Sodium Chloride 0.9% 1, 1000 000 ml @ 50 mls/hr IV . Q20H [facility] Rx#:[id number] Oral 400 Other: # Voids 5 # Bowel Movements 0 Active Medications: Current Medications Acetaminophen/Codeine Phosphate (Tylenol W/Codeine #3) 1 tab PO Q4H PRN PRN Reason: Pain (Moderate) Stop: 06/21/17 02:25 Acetaminophen/Hydrocodone Bitart ([place] 10 Mg/325 Mg) 1 tab PO Q6H PRN PRN Reason: Pain (Moderate) Stop: 06/18/17 18:57 Last Admin: 04/23/17 04:59 Dose: 1 tab Aspirin (Ecotrin) 81 mg PO DAILY [facility] Stop: 06/19/17 08:59 Last Admin: 04/22/17 09:14 Dose: 81 mg Carisoprodol (Soma) 350 mg PO HS [facility] Stop: 06/19/17 20:59 Last Admin: 04/22/17 20:32 Dose: 350 mg Cephalexin Monohydrate (Keflex) 250 mg PO QID [facility] Stop: 04/29/17 02:23 Last Admin: 04/22/17 20:33 Dose: 250 mg Docusate Sodium (Colace) 100 mg PO DAILY [facility] Stop: 06/21/17 08:59 Last Admin: 04/22/17 09:48 Dose: Not Given Gabapentin (Neurontin) 600 mg PO TID [facility] Stop: 06/18/17 20:59 Last Admin: 04/22/17 20:32 Dose: 600 mg Sodium Chloride (Nacl 0.9%) 1,000 mls @ 50 mls/hr IV .Q20H [facility] Stop: 06/19/17 07:15 Last Admin: 04/22/17 16:44 Dose: 50 mls/hr Morphine Sulfate (Morphine) 6 mg IV Q8H [facility] Stop: 06/19/17 00:00 Last Admin: 04/23/17 00:06 Dose: 6 mg Nicotine (Nicotine Transdermal System) 14 mg TD DAILY [facility] Stop: 06/21/17 08:59 Last Admin: 04/22/17 09:39 Dose: 14 mg Quetiapine Fumarate (Seroquel) 300 mg PO HS [facility] PRN Reason: Protocol Stop: 06/18/17 20:59 Last Admin: 04/22/17 20:33 Dose: 300 mg Ziprasidone (Geodon) 60 mg PO DAILY [facility] Stop: 06/19/17 08:59 Last Admin: 04/22/17 09:14 Dose: 60 mg General: Alert, Oriented x3 HEENT: Atraumatic, PERRLA, EOMI Neck: Supple Cardiovascular: Regular rate, Normal S1, Normal S2 Lungs: Clear to auscultation Abdomen: Bowel sounds, Soft - Procedures Procedures: Procedures Procedure Code Date BLOOD TRANSFUSION SERVICE 15312 04/19/17 DELIVERY ONLY 26966 12/19/04 INJECT RH IMMUNE GLOBUL 99.11 11/09/04 LOW CERVICAL 74.1 12/19/04 REPLACE OF L HIP JT, FEMORAL WITH SYNTH SUB, OPEN APPROACH [id number] 04/09/17 REPOSITION LEFT UPPER FEMUR, EXTERNAL APPROACH [id number] 04/19/17 TRANSFUSE NONAUT RED BLOOD CELLS IN PERIPH VEIN, PERC 02332C3 04/19/17 TREAT HIP DISLOCATION 39970 04/19/17 TREAT THIGH FRACTURE 05734 04/09/17 Assessment/Plan - Problem List Patient Problems: All Active Problems Anemia (Acute) D64.9 Anxiety (Acute) F41.9 Dislocation of left hip (Acute) S73.005A Hepatitis C (Acute) Hyponatremia (Acute) E87.1 Left hip pain (Acute) M25.552 Status post closed reduction of dislocated total hip prosthesis (Acute) Z98.890 - Assessment Assessment: Left hip pain secondary to hip dislocation hyponatremia hepatitis C anxiety disorder bipolar disorder constipation s/p closed reduction of the left hip nicotine dependency. - Plan Plan: S/p closed reduction of the Left hip pain ... continue current treatment per ortho. for physical therapy. Hyponatremia ... improving. will continue IV fluids..NS@50cc/hr will repeat CMP Psychiatric disorder .... will continue home medications. Will obtain psychiatric evaluation. Please see dictated report Anemia S/P blood transfusion of 2 units of packed RBC's.-- repeat CBC this AM Nicotine dependency -- will order nicotine patch constipation ... will order stool softeners.
[2017-04-23] MEDS: Nicotine 14 mg/24 hr Tdm TD SCH (08:39)
--- NOTE | 2017-04-23 08:49 | Consultation ---
DATE OF CONSULTATION: 04/23/2017 AGE: 47. SEX: Female. PHYSICIAN: Dr. Gan. CHIEF COMPLAINT: Left hip pain. HISTORY OF PRESENT ILLNESS: The patient is a 47-year-old female who was admitted to the hospital because of increased left hip pain. The patient had left hip replacement about 2 weeks ago and the patient has been in pain since then. The patient has history of bipolar disorder. The patient said that she has been anxious and depressed because of hip pain, but she denies any thoughts of suicide or homicide. She also has been compliant with taking her medications with Neurontin, Seroquel, and Geodon with no side effects. PAST PSYCHIATRIC HISTORY: History of treatment of bipolar disorder. PAST MEDICAL HISTORY: The patient had hip replacement 2 weeks ago. SOCIAL HISTORY: The patient is and lives with her and 4 children. She denies alcohol or street drug use. She is unemployed and denies any legal issues or abuse issues. MENTAL STATUS EXAM: The patient appears her stated age. Anxious. Mood not depressed nor elated. Cooperative. Thought processes are goal directed. The patient denies auditory or visual hallucinations or delusions. She denies any suicidal or homicidal ideations. The patient is alert and oriented to time, place, person, and situation. Intact immediate, recent and remote memories. Fair insight and fair judgment. ASSESSMENT: PRIMARY DIAGNOSIS: Bipolar disorder, mixed type. TREATMENT PLAN: We will monitor the patient's behavior closely. We will continue Seroquel and the Geodon and the Neurontin. Also, the patient will need to continue her outpatient treatment. Thanks to Dr. Rodrigues and we will follow with you while in [facility]. JOB# [id number]
--- NOTE | 2017-04-23 10:10 | Diagnostic Imaging Report ---
Fluoroscopy was utilized to facilitation of left hip arthroplasty procedure. Please refer to the surgical report for complete details. The total fluoroscopic time for the exam was 27 seconds.
[2017-04-23 13:13] LABS: % EOSINOPHILS 0.3 % (0.0-5.0); % LYMPHOCYTES 18.6 % (20.0-50.0); % MONOCYTES 7.2 % (2.0-10.0); % NEUTROPHILS 73.9 % (40.0-80.0); HEMOGLOBIN 12.3 gm/dL (11.7-15.5); MEAN CELL VOLUME 87.2 fl (81-100); MEAN CORPUSCULAR HEMOGLOBIN 28.4 pg (27.0-31.0); MEAN CORPUSCULAR HGB CONC 32.6 pg (28.0-36.0); MEAN PLATELET VOLUME 7.6 fl; NEUTROPHILE ABSOLUTE 7.2 Th/cmm (1.8-8.0); PLATELET COUNT 528 Th/cmm (150-400); RED BLOOD COUNT 4.31 Mil/cmm (3.80-5.10); RED CELL DISTRIBUTION WIDTH 13.9 % (11.5-20.0)
[2017-04-23 13:16] LABS: HEMATOCRIT 37.6 % (35.0-45.0); WHITE BLOOD COUNT 9.7 Th/cmm (4.8-10.8)
[2017-04-23 13:32] LABS: ALB/GLOB RATIO 0.9 (1.0-1.8); ALKALINE PHOSPHATASE 123 U/L (34-104); ANION GAP 9.9 (7.0-16.0); BILIRUBIN,TOTAL 0.3 mg/dL (0.3-1.0); BUN - UREA NITROGEN 9 mg/dL (7-25); CALCIUM SERUM 10.1 mg/dL (8.6-10.3); CARBON DIOXIDE 24.9 mEq/L (21.0-31.0); CHLORIDE 106 mEq/L (98-107); CREATININE - SERUM 0.6 mg/dL (0.6-1.2); GLUCOSE 133 mg/dL (70-105); POTASSIUM SERUM 3.8 mEq/L (3.5-5.1); SGOT 31 U/L (13-39); SGPT/ALT 30 U/L (7-52); SODIUM SERUM 137 mEq/L (136-145)
[2017-04-23] MEDS: APAP/Codeine 300 mg/30 mg Tab PO PRN (17:01)
[2017-04-24] MEDS: Hydrocodone/APAP 10 mg/325 mg Tab PO PRN (04:16)
[2017-04-24] MEDS: Sodium Chloride 0.9% 1,000 ML IV SCH ×2 (09:46→22:30)
[2017-04-24] MEDS: Nicotine 14 mg/24 hr Tdm TD SCH (09:47)
[2017-04-25] MEDS: Hydrocodone/APAP 10 mg/325 mg Tab PO PRN ×2 (02:47→16:33)
[2017-04-25] MEDS: APAP/Codeine 300 mg/30 mg Tab PO PRN (04:27)
--- NOTE | 2017-04-25 07:25 | General Progress Note ---
Subjective - Review of Systems Service Date: 04/25/17 Subjective: Patient was seen and examined status post left hip closed reduction. Patient on pain control. BM today and yesterday. Patient evaluated by psychiatry please see dictated report. Continue current treatment per ortho. Objective - Results Result Diagrams: 04/23/17 13:05 04/23/17 13:05 Recent Labs: Laboratory Last Values WBC 9.7 Th/cmm (4.8-10.8) D 04/23/17 13:05 RBC 4.31 Mil/cmm (3.80-5.10) 04/23/17 13:05 Hgb 12.3 gm/dL (11.7-15.5) 04/23/17 13:05 Hct 37.6 % (35.0-45.0) D 04/23/17 13:05 MCV 87.2 fl (81-100) 04/23/17 13:05 MCH 28.4 pg (27.0-31.0) 04/23/17 13:05 MCHC Differential 32.6 pg (28.0-36.0) 04/23/17 13:05 RDW 13.9 % (11.5-20.0) 04/23/17 13:05 Plt Count 528 Th/cmm (150-400) H 04/23/17 13:05 MPV 7.6 fl 04/23/17 13:05 Neutrophils % 73.9 % (40.0-80.0) 04/23/17 13:05 Band Neutrophils % 3 % (0-10) 04/20/17 11:25 Lymphocytes % 18.6 % (20.0-50.0) L 04/23/17 13:05 Monocytes % 7.2 % (2.0-10.0) 04/23/17 13:05 Eosinophils % 0.3 % (0.0-5.0) 04/23/17 13:05 Basophils % 0.0 % (0.0-2.0) 04/23/17 13:05 Neutrophils (Manual) 71 % (40-80) 04/20/17 11:25 Lymphocytes 9 % (20-50) L 04/20/17 11:25 Monocytes 14 % (2-10) H 04/20/17 11:25 Metamyelocytes 3 % (0-0) H 04/20/17 11:25 Platelet Estimate INCREASED PLATELETS (NORMAL) 04/20/17 11:25 Platelet Morphology NORMAL (NORMAL) 04/20/17 11:25 Poikilocytosis 1+ 04/20/17 11:25 RBC Morph Micro Appear ABNORMAL (NORMAL) 04/20/17 11:25 PT 9.7 SECONDS (9.5-11.5) 04/20/17 11:25 INR 0.93 (0.5-1.4) 04/20/17 11:25 Sodium 137 mEq/L (136-145) 04/23/17 13:05 Potassium 3.8 mEq/L (3.5-5.1) 04/23/17 13:05 Chloride 106 mEq/L (98-107) 04/23/17 13:05 Carbon Dioxide 24.9 mEq/L (21.0-31.0) 04/23/17 13:05 Anion Gap 9.9 (7.0-16.0) 04/23/17 13:05 BUN 9 mg/dL (7-25) 04/23/17 13:05 Creatinine 0.6 mg/dL (0.6-1.2) 04/23/17 13:05 Est GFR ( Amer) > 60.0 ml/min (>90) 04/23/17 13:05 Est GFR (Non-Af Amer) > 60.0 ml/min 04/23/17 13:05 BUN/Creatinine Ratio 15.0 04/23/17 13:05 Glucose 133 mg/dL (70-105) H 04/23/17 13:05 Calcium 10.1 mg/dL (8.6-10.3) 04/23/17 13:05 Total Bilirubin 0.3 mg/dL (0.3-1.0) 04/23/17 13:05 AST 31 U/L (13-39) 04/23/17 13:05 ALT 30 U/L (7-52) 04/23/17 13:05 Alkaline Phosphatase 123 U/L (34-104) H 04/23/17 13:05 Total Protein 7.1 gm/dL (6.0-8.3) 04/23/17 13:05 Albumin 3.3 gm/dL (3.7-5.3) L 04/23/17 13:05 Globulin 3.8 gm/dL 04/23/17 13:05 Albumin/Globulin Ratio 0.9 (1.0-1.8) L 04/23/17 13:05 Urine Source RANDOM 04/20/17 22:50 Urine Color STRAW 04/20/17 22:50 Urine Clarity CLEAR (CLEAR) 04/20/17 22:50 Urine pH 6.5 04/20/17 22:50 Ur Specific [place] < 1.005 (1.005-1.030) L 04/20/17 22:50 Urine Protein NEGATIVE mg/dL (NEGATIVE) 04/20/17 22:50 Urine Glucose (UA) NEGATIVE mg/dL (NEGATIVE) 04/20/17 22:50 Urine Ketones NEGATIVE mg/dL (NEGATIVE) 04/20/17 22:50 Urine Blood NEGATIVE (NEGATIVE) 04/20/17 22:50 Urine Nitrate NEGATIVE (NEGATIVE) 04/20/17 22:50 Urine Bilirubin NEGATIVE (NEGATIVE) 04/20/17 22:50 Urine Urobilinogen 0.2 E.U./dL (0.2 - 1.0) 04/20/17 22:50 Ur Leukocyte Esterase TRACE (NEGATIVE) H 04/20/17 22:50 Urine RBC 0-2 /hpf (0-5) 04/20/17 22:50 Urine WBC 2-5 /hpf (0-5) 04/20/17 22:50 Ur Epithelial Cells FEW /lpf (FEW) 04/20/17 22:50 Urine Bacteria OCCASIONAL /hpf (NONE SEEN) 04/20/17 22:50 Blood Type A NEGATIVE 04/20/17 13:00 Antibody Screen NEGATIVE 04/20/17 13:00 Crossmatch See Detail 04/20/17 13:00 - Physical Exam Vitals and I&O: Vital Signs Temp 98.0 F 04/25/17 04:00 Pulse 94 04/25/17 04:00 Resp 20 04/25/17 04:00 BP 148/95 04/25/17 04:00 Pulse Ox 98 04/25/17 04:00 Intake & Output 04/24/17 04/25/17 04/25/17 18:59 06:59 18:59 Intake Total 480 976.667 Output Total 0 Balance 480 976.667 Weight (lbs) 73.482 kg 73.482 kg Intake: Intake, IV Amount 636.667 Sodium Chloride 0.9% 1, 636.667 000 ml @ 50 mls/hr IV . Q20H [facility] Rx#:[id number] Oral 480 340 Output: Stool 0 Other: # Voids 2 # Bowel Movements 1 0 Active Medications: Current Medications Acetaminophen/Codeine Phosphate (Tylenol W/Codeine #3) 1 tab PO Q4H PRN PRN Reason: Pain (Moderate) Stop: 06/21/17 02:25 Last Admin: 04/25/17 04:27 Dose: 1 tab Acetaminophen/Hydrocodone Bitart ([place] 10 Mg/325 Mg) 1 tab PO Q6H PRN PRN Reason: Pain (Moderate) Stop: 06/18/17 18:57 Last Admin: 04/25/17 02:47 Dose: 1 tab Alprazolam (Xanax) 0.25 mg PO Q6HR PRN; Protocol PRN Reason: Agitation Stop: 06/23/17 13:16 Last Admin: 04/25/17 01:53 Dose: 0.25 mg Aspirin (Ecotrin) 81 mg PO DAILY [facility] Stop: 06/19/17 08:59 Last Admin: 04/24/17 09:48 Dose: Not Given Carisoprodol (Soma) 350 mg PO HS [facility] Stop: 06/19/17 20:59 Last Admin: 04/24/17 20:18 Dose: 350 mg Cephalexin Monohydrate (Keflex) 250 mg PO QID [facility] Stop: 04/29/17 02:23 Last Admin: 04/24/17 20:18 Dose: 250 mg Docusate Sodium (Colace) 100 mg PO DAILY [facility] Stop: 06/21/17 08:59 Last Admin: 04/24/17 09:47 Dose: Not Given Gabapentin (Neurontin) 600 mg PO TID [facility] Stop: 06/18/17 20:59 Last Admin: 04/24/17 20:18 Dose: 600 mg Sodium Chloride (Nacl 0.9%) 1,000 mls @ 50 mls/hr IV .Q20H [facility] Stop: 06/19/17 07:15 Last Admin: 04/24/17 22:30 Dose: 50 mls/hr Methadone HCl (Methadone) 80 mg PO DAILY [facility] Stop: 06/24/17 08:59 Nicotine (Nicotine Transdermal System) 14 mg TD DAILY [facility] Stop: 06/21/17 08:59 Last Admin: 04/24/17 09:47 Dose: Not Given Quetiapine Fumarate (Seroquel) 300 mg PO HS ARMANDO PRN Reason: Protocol Stop: 06/18/17 20:59 Last Admin: 04/24/17 20:18 Dose: 300 mg Ziprasidone (Geodon) 60 mg PO DAILY [facility] Stop: 06/19/17 08:59 Last Admin: 04/24/17 09:47 Dose: 60 mg General: Alert, Oriented x3 HEENT: Atraumatic, PERRLA, EOMI Neck: Supple Cardiovascular: Regular rate, Normal S1, Normal S2 Lungs: Clear to auscultation Abdomen: Bowel sounds, Soft - Procedures Procedures: Procedures Procedure Code Date BLOOD TRANSFUSION SERVICE 62468 04/19/17 DELIVERY ONLY 57718 12/19/04 INJECT RH IMMUNE GLOBUL 99.11 11/09/04 LOW CERVICAL 74.1 12/19/04 REPLACE OF L HIP JT, FEMORAL WITH SYNTH SUB, OPEN APPROACH [id number] 04/09/17 REPOSITION LEFT UPPER FEMUR, EXTERNAL APPROACH [id number] 04/19/17 TRANSFUSE NONAUT RED BLOOD CELLS IN PERIPH VEIN, PERC 51491R6 04/19/17 TREAT HIP DISLOCATION 83935 04/19/17 TREAT THIGH FRACTURE 32539 04/09/17 Assessment/Plan - Problem List Patient Problems: All Active Problems Anemia (Acute) D64.9 Anxiety (Acute) F41.9 Dislocation of left hip (Acute) S73.005A Hepatitis C (Acute) Hyponatremia (Acute) E87.1 Left hip pain (Acute) M25.552 Status post closed reduction of dislocated total hip prosthesis (Acute) Z98.890 - Assessment Assessment: Left hip pain secondary to hip dislocation hyponatremia hepatitis C anxiety disorder bipolar disorder constipation s/p closed reduction of the left hip nicotine dependency. - Plan Plan: S/p closed reduction of the Left hip pain ... continue current treatment per ortho. for physical therapy. Hyponatremia ... improving. will continue IV fluids..NS@50cc/hr will repeat CMP Psychiatric disorder .... will continue home medications. Will obtain psychiatric evaluation. Please see dictated report Anemia S/P blood transfusion of 2 units of packed RBC's.-- repeat CBC this AM Nicotine dependency -- will order nicotine patch constipation ... will order stool softeners. chronic use of narcotics .... on methadone per psychiatry.
[2017-04-25] MEDS: Nicotine 14 mg/24 hr Tdm TD SCH (08:42)
--- NOTE | 2017-04-26 07:55 | Discharge Summary ---
General Discharge Summary - Discharge Summary Date of Admission: 04/20/17 Admitting Diagnosis: Left Hip Pain Patient Problems: All Active Problems Anemia (Acute) D64.9 Anxiety (Acute) F41.9 Dislocation of left hip (Acute) S73.005A Hepatitis C (Acute) Hyponatremia (Acute) E87.1 Left hip pain (Acute) M25.552 Status post closed reduction of dislocated total hip prosthesis (Acute) Z98.890 Discharge Date: 04/25/17 Discharge Diagnosis: Same as above Laboratory Findings: Laboratory Tests 04/19/17 04/20/17 04/20/17 19:08 11:25 11:25 WBC 13.7 H D RBC 2.57 L Hgb 7.6 L* Hct 22.2 L* D MCV 86.6 MCH 29.5 MCHC Differential 34.0 RDW 13.9 Plt Count 531 H D MPV 7.5 Neutrophils % Band Neutrophils % 3 Lymphocytes % Monocytes % Eosinophils % Basophils % Neutrophils (Manual) 71 Lymphocytes 9 L Monocytes 14 H Metamyelocytes 3 H Platelet Estimate INCREASED PLATELETS Platelet Morphology NORMAL Poikilocytosis 1+ RBC Morph Micro Appear ABNORMAL PT 9.7 INR 0.93 Sodium 128 L Potassium 4.5 Chloride 101 Carbon Dioxide 19.7 L Anion Gap 11.8 BUN 12 Creatinine 0.7 Est GFR ( Amer) > 60.0 Est GFR (Non-Af Amer) > 60.0 BUN/Creatinine Ratio 17.1 Glucose 106 H Calcium 9.2 Total Bilirubin AST ALT Alkaline Phosphatase Total Protein Albumin Globulin Albumin/Globulin Ratio Urine Source Urine Color Urine Clarity Urine pH Ur Specific [place] Urine Protein Urine Glucose (UA) Urine Ketones Urine Blood Urine Nitrate Urine Bilirubin Urine Urobilinogen Ur Leukocyte Esterase Urine RBC Urine WBC Ur Epithelial Cells Urine Bacteria Blood Type Antibody Screen Crossmatch 04/20/17 04/20/17 04/20/17 11:25 13:00 22:50 WBC RBC Hgb Hct MCV MCH MCHC Differential RDW Plt Count MPV Neutrophils % Band Neutrophils % Lymphocytes % Monocytes % Eosinophils % Basophils % Neutrophils (Manual) Lymphocytes Monocytes Metamyelocytes Platelet Estimate Platelet Morphology Poikilocytosis RBC Morph Micro Appear PT INR Sodium 134 L Potassium 3.6 Chloride 105 Carbon Dioxide 27.2 Anion Gap 5.4 L BUN 9 Creatinine 0.5 L Est GFR ( Amer) > 60.0 Est GFR (Non-Af Amer) > 60.0 BUN/Creatinine Ratio 18.0 Glucose 122 H Calcium 8.4 L Total Bilirubin AST ALT Alkaline Phosphatase Total Protein Albumin Globulin Albumin/Globulin Ratio Urine Source RANDOM Urine Color STRAW Urine Clarity CLEAR Urine pH 6.5 Ur Specific [place] < 1.005 L Urine Protein NEGATIVE Urine Glucose (UA) NEGATIVE Urine Ketones NEGATIVE Urine Blood NEGATIVE Urine Nitrate NEGATIVE Urine Bilirubin NEGATIVE Urine Urobilinogen 0.2 Ur Leukocyte Esterase TRACE H Urine RBC 0-2 Urine WBC 2-5 Ur Epithelial Cells FEW Urine Bacteria OCCASIONAL Blood Type A NEGATIVE Antibody Screen NEGATIVE Crossmatch See Detail 04/21/17 04/23/17 04/23/17 14:50 13:05 13:05 WBC 9.7 D RBC 4.31 Hgb 10.8 L D 12.3 Hct 32.4 L D 37.6 D MCV 87.2 MCH 28.4 MCHC Differential 32.6 RDW 13.9 Plt Count 528 H MPV 7.6 Neutrophils % 73.9 Band Neutrophils % Lymphocytes % 18.6 L Monocytes % 7.2 Eosinophils % 0.3 Basophils % 0.0 Neutrophils (Manual) Lymphocytes Monocytes Metamyelocytes Platelet Estimate Platelet Morphology Poikilocytosis RBC Morph Micro Appear PT INR Sodium 137 Potassium 3.8 Chloride 106 Carbon Dioxide 24.9 Anion Gap 9.9 BUN 9 Creatinine 0.6 Est GFR ( Amer) > 60.0 Est GFR (Non-Af Amer) > 60.0 BUN/Creatinine Ratio 15.0 Glucose 133 H Calcium 10.1 Total Bilirubin 0.3 AST 31 ALT 30 Alkaline Phosphatase 123 H Total Protein 7.1 Albumin 3.3 L Globulin 3.8 Albumin/Globulin Ratio 0.9 L Urine Source Urine Color Urine Clarity Urine pH Ur Specific [place] Urine Protein Urine Glucose (UA) Urine Ketones Urine Blood Urine Nitrate Urine Bilirubin Urine Urobilinogen Ur Leukocyte Esterase Urine RBC Urine WBC Ur Epithelial Cells Urine Bacteria Blood Type Antibody Screen Crossmatch Hospital Course: Brief HPI : 47 year old female who recently underwent a left hip replacement 2 weeks prior to admission was seen at [facility] ER for left hip pain. Patient states that she awoke from bed yesterday with increase pain and discomfort to the left hip. The patient rated the pain to be +9/10 in severity. While in the ER and Xray of the left hip revealed a dislocation of the left hip. She was subsequently admitted for evaluation and treatment. Treatment: Patient during her hospital stay. Patient was seen and evaluated by Ortho and was underwent a closed reduction in the OR. Please see dictated ortho report. Patient was found to have hyponatremia and anemia which was corrected. Patient also has a history of opiod abuse along with psychiatric disorder. The patient was seen by psychiatry. Please see dictated report. Patient was subsequently transferred to a SNF in stable condition for further evaluation and treatment. Condition at Discharge: Stable Disposition: Discharge/Transfered to SNF Home Medications: Home Medication Medication Instructions Recorded Type Aspirin [Ecotrin] 81 mg PO DAILY 04/09/17 History Carisoprodol [Soma] 250 mg PO HS 04/09/17 History Gabapentin [Neurontin] 600 mg PO TID 04/09/17 History QUEtiapine Fumarate [SEROquel] 300 mg PO HS 04/09/17 History Ziprasidone HCl [Geodon] 60 mg PO DAILY 04/09/17 History APAP/Codeine 300 mg/30 mg [Tylenol 1 tab PO Q4H PRN tab 04/25/17 Rx W/Codeine #3] Aspirin EC [Ecotrin] 81 mg PO DAILY ect 04/25/17 Rx Carisoprodol [Soma] 350 mg PO HS tab 04/25/17 Rx Cephalexin [Keflex] 250 mg PO QID cap 04/25/17 Rx Docusate Sodium [Colace] 100 mg PO DAILY cap 04/25/17 Rx Hydrocodone/APAP 10 mg/325 mg 1 tab PO Q6H PRN tab 04/25/17 Rx [[place] 10 mg/325 mg] Methadone Conc Oral Soln 80 mg PO DAILY ud 04/25/17 Rx [Methadose] Nicotine 14 mg/24 hr [Nicotine 14 mg TD DAILY tdm 04/25/17 Rx Transdermal System] alprazOLAM [Xanax*] 0.25 mg PO Q6HR PRN tab 04/25/17 Rx Consults and Follow-Up: NILDA LAWTON [Other] not on staff,PCP is [Primary Care Provider] - Instructions: Hip Dislocation, [id number]
[2017-04-26] MEDS ORDERED: METHADONE HCL 10 MG/ML PO SCH (09:00)
== END 2017-04-25 17:15 | DRG 349 ==
LOC: ER 10:19 → MSI 17:32
PROVIDERS: ADMIT Family Medicine; ATTEND Family Medicine
PROC: 30233N1 Transfusion of Nonautologous Red Blood Cells into Peripheral Vein, Percutaneous Approach (ICD-10-PCS; principal; 2017-04-21)
PROC: 0QS7XZZ Reposition Left Upper Femur, External Approach (ICD-10-PCS; 2017-04-21)
DX: T84.021A Dislocation of internal left hip prosthesis, initial encounter (principal); E44.1 Mild protein-calorie malnutrition; E87.1 Hypo-osmolality and hyponatremia; B19.20 Unspecified viral hepatitis C without hepatic coma; F41.9 Anxiety disorder, unspecified; K59.00 Constipation, unspecified; F17.210 Nicotine dependence, cigarettes, uncomplicated; D64.9 Anemia, unspecified; F31.60 Bipolar disorder, current episode mixed, unspecified; F11.90 Opioid use, unspecified, uncomplicated; Y83.8 Other surgical procedures as the cause of abnormal reaction of the patient, or of later complication, without mention of misadventure at the time of the procedure; Y92.89 Other specified places as the place of occurrence of the external cause; Z96.642 Presence of left artificial hip joint; Z68.28 Body mass index [BMI] 28.0-28.9, adult
CPT/HCPCS: 36415-UA; 73501; 76000-TC; 80048-TC; 80053-TC; 81001-TC; 81003-TC; 85007-TC; 85014-TC; 85018-TC; 85025-TC; 85027-TC; 85610-TC; 86850-TC; 86900-TC; 86901-TC; 86922-TC; 93005; 96374; 96376; 97530; J0330; J0696; J2250; J2270; J2704; J7030; J7040; P9016; X3904; X6026; Z7610

== ENCOUNTER 2017-06-19 15:12 | Inpatient (IN) | payer MEDICAID ==
--- NOTE | 2017-06-19 15:44 | ED Physician Chart ---
ED Chief Complaint/HPI - Patient Information Date Seen:: 06/19/17 Time Seen:: 15:25 Chief Complaint:: numbness left foot History of Present Illness:: Patient complains of numbness left foot for about the last 1 week. Patient had left hip replacement surgery end of March 2017 at this hospital. 9 days later her left hip prosthesis dislocated. The hip dislocation was reduced at this hospital and the patient was placed on a PVC bar cast. Allergies:: Allergies Allergy/AdvReac Type Severity Reaction Status Date / Time No Known Allergies Allergy Verified 04/09/17 13:12 Historian:: Patient Review:: Nurse's Note Reviewed ED Review of Systems - Review of Systems General/Constitutional: No fever, No chills Skin: No skin lesions Head: No headache Eyes: No loss of vision ENT: No earache Neck: No neck pain, No swelling Cardio Vascular: No chest pain Pulmonary: No SOB GI: No nausea, No vomiting G/U: No dysuria Musculoskeletal: Other (see history) Endocrine: No polyuria, No polydipsia Psychiatric: Prior psych history Hematopoietic: No bruising Allergic/Immuno: No urticaria Neurological: No syncope ED Past Medical History - Past Medical History Past Medical History: Other (history of opioid addiction; bipolar schizophrenia ; chronic pain; anxiety; hepatitis C) Family History: Diabetes Melitus, HTN Social History: Smoker, , Care Facility Surgical History: other (see history and physical; pins placed first metatarsal right foot) Psychiatricy History: Schizophrenia, Bipolar Medication: Reviewed Family Medical History - Family Member Mother History Unknown: Yes Hx Family Cancer: No Hx Family Congestive Heart Failure: No Hx Family Hypertension: No Hx Family Diabetes: No Hx Family Seizures: No Hx Family Dementia: No Hx Family AIDS: No ED Physical Exam - Physical Examination General/Constitutional: Well-developed, well-nourished, Alert, No distress Head: Atraumatic Eyes: Lids, conjuctiva normal, PERRL Other Skin comments:: Left foot warm with capillary refill of about 3 seconds. Strong dorsalis pedis pulse left foot. ENMT: External ears, nose nl, Lips, teeth, gums nl Neck: No nuchal rigidity Respiratory: Nl effort/Exclusion, Clear to Auscultation, No Wheeze/Rhonchi/Rales Cardio Vascular: RRR GI: No tenderness/rebounding/guarding, No organomegaly, No hernia : No CVA tenderness Other Extremities comments:: Left leg long leg cast; right leg: right thigh cast; horizontal plastic tube connecting the right thigh cast with the left thigh aspect of the left long leg cast Neuro/Psych: Alert/oriented Misc: Normal back, No paraspinal tenderness ED Septic Shock - . Is Septic Shock (SBP<90, OR Lactate>4 mmol\L) present?: No ED Reassessment (Disposition) - Reassessment Reassessment Condition:: Unchanged - Diagnosis Diagnosis:: Status post dislocation left hip prosthesis; left foot numbness - Patient Disposition Admitted to:: Med/Surg Spoke to:: Nicholas Rodrigues Admitting Medical Physician:: Nicholas Rodrigues Condition at Disposition:: Stable, Unchanged
[2017-06-19 16:04] LABS: % BASOPHILS 0.8 % (0.0-2.0); % LYMPHOCYTES 36.8 % (20.0-50.0); % MONOCYTES 8.7 % (2.0-10.0); % NEUTROPHILS 50.7 % (40.0-80.0); HEMATOCRIT 39.4 % (41.0-60); HEMOGLOBIN 13.5 gm/dL (12-16); MEAN CORPUSCULAR HEMOGLOBIN 27.8 pg (27.0-31.0); MEAN CORPUSCULAR HGB CONC 34.3 pg (28.0-36.0); MEAN PLATELET VOLUME 7.9 fl; NEUTROPHILE ABSOLUTE 3.5 Th/cmm (1.8-8.0); RED BLOOD COUNT 4.86 Mil/cmm (3.80-5.10); RED CELL DISTRIBUTION WIDTH 15.2 % (11.5-20.0)
[2017-06-19 16:14] LABS: PLATELET COUNT 299 Th/cmm (150-400); WHITE BLOOD COUNT 6.9 Th/cmm (4.8-10.8)
[2017-06-19 16:21] LABS: ANION GAP 9.5 (7.0-16.0); BUN - UREA NITROGEN 9 mg/dL (7-25); CALCIUM SERUM 9.9 mg/dL (8.6-10.3); CARBON DIOXIDE 26.4 mEq/L (21.0-31.0); CHLORIDE 102 mEq/L (98-107); CREATININE - SERUM 0.9 mg/dL (0.6-1.2); GLUCOSE 113 mg/dL (70-105); POTASSIUM SERUM 3.9 mEq/L (3.5-5.1); SODIUM SERUM 134 mEq/L (136-145)
[2017-06-19] MEDS ORDERED: Hydrocodone/APAP 10 mg/325 mg Tab PO PRN ×2 (16:50→23:56)
[2017-06-19] MEDS ORDERED: APAP/Codeine 300 mg/30 mg Tab PO PRN (16:50)
[2017-06-19] MEDS ORDERED: Non-Formulary Item 1 EA (Gabapentin [Neurontin] 600 MG) PO SCH (21:00)
[2017-06-19] MEDS ORDERED: CARISOPRODOL 250 MG PO SCH (21:00)
[2017-06-20 03:39] VITALS: BP 112/76
[2017-06-20 06:50] LABS: ALB/GLOB RATIO 1.2 (1.0-1.8); ALKALINE PHOSPHATASE 147 U/L (34-104); ANION GAP 8.1 (7.0-16.0); BILIRUBIN,TOTAL 0.2 mg/dL (0.3-1.0); BUN - UREA NITROGEN 12 mg/dL (7-25); CALCIUM SERUM 10.1 mg/dL (8.6-10.3); CARBON DIOXIDE 27.9 mEq/L (21.0-31.0); CHLORIDE 104 mEq/L (98-107); CREATININE - SERUM 0.8 mg/dL (0.6-1.2); GLUCOSE 113 mg/dL (70-105); SGOT 29 U/L (13-39); SGPT/ALT 24 U/L (7-52); SODIUM SERUM 136 mEq/L (136-145)
--- NOTE | 2017-06-20 08:15 | History and Physical ---
History of Present Illness - HPI Chief Complaint: left foot numbness HPI: 47 year old female who presents to [facility] ER for complaints of left foot numbness. Patient is s/p left hip replacement in March 2017. Approximately 9 days later she underwent left hip prosthesis dislocation. Patient underwent reduction of her hip at that time and was placed on a PVC bar cast. Patient was subsequently admitted for further evaluation and treatment. Vital Signs: Last Vital Signs Temp 97.4 F 06/20/17 04:00 Pulse 96 06/20/17 04:00 Resp 20 06/20/17 04:00 BP 124/95 06/20/17 04:00 Pulse Ox 96 06/20/17 04:00 Past Medical History Cardiovascular: Report: No Pertinent Hx Pulmonary: Report: No Pertinent Hx PAYABLE MANAGER: Report: No Pertinent Hx GI: Report: No Pertinent Hx Psych: Report: Anxiety, Bipolar, Schizophrenia, Other (Chronic Pain Syndrome) Musculoskeletal: Report: Other (s/p hip surgery March 2017) Infectious Disease: Report: Other (hepatitis C) Renal/: Report: No Pertinent Hx Endocrine: Report: No Pertinent Hx Dermatology: Report: No Pertinent Hx - Past Surgical History Past Surgical History: Total Hip Replacement Family Medical History - Family Member Mother History Unknown: Yes Hx Family Cancer: No Hx Family Congestive Heart Failure: No Hx Family Hypertension: No Hx Family Diabetes: Yes Hx Family Seizures: No Hx Family Dementia: No Hx Family AIDS: No Social History Smoke: No Alcohol: None Drugs: None Lives: [facility] - Medications Home Medications: Home Medication Medication Instructions Recorded Type Aspirin [Ecotrin] 81 mg PO DAILY 04/09/17 History Carisoprodol [Soma] 250 mg PO HS 04/09/17 History Gabapentin [Neurontin] 600 mg PO TID 04/09/17 History QUEtiapine Fumarate [SEROquel] 300 mg PO HS 04/09/17 History Ziprasidone HCl [Geodon] 60 mg PO DAILY 04/09/17 History APAP/Codeine 300 mg/30 mg [Tylenol 1 tab PO Q4H PRN tab 04/25/17 Rx W/Codeine #3] Aspirin EC [Ecotrin] 81 mg PO DAILY ect 04/25/17 Rx Carisoprodol [Soma] 350 mg PO HS tab 04/25/17 Rx Cephalexin [Keflex] 250 mg PO QID cap 04/25/17 Rx Docusate Sodium [Colace] 100 mg PO DAILY cap 04/25/17 Rx Hydrocodone/APAP 10 mg/325 mg 1 tab PO Q6H PRN tab 04/25/17 Rx [[place] 10 mg/325 mg] Methadone Conc Oral Soln 80 mg PO DAILY ud 04/25/17 Rx [Methadose] Nicotine 14 mg/24 hr [Nicotine 14 mg TD DAILY tdm 04/25/17 Rx Transdermal System] alprazOLAM [Xanax*] 0.25 mg PO Q6HR PRN tab 04/25/17 Rx - Allergies Allergies/Adverse Reactions: Allergies Allergy/AdvReac Type Severity Reaction Status Date / Time No Known Allergies Allergy Verified 06/19/17 16:06 Review of Systems - Review of Systems Constitutional: Report: No Significant Eyes: Report: No Significant ENT: Report: No Significant Respiratory: Report: No Significant Cardiovascular: Report: No Significant Gastrointestinal: Report: No Significant Genitourinary: Report: No Significant Musculoskeletal: Report: Foot Pain Skin: Report: No Significant Neurological: Report: No Significant Physical Exam - Physical Exam HEENT: Report: Ears Nose Throat within normal limits, Pharnyx within normal limits Neck: Report: Within normal limits Cardiovascular Systems: Report: +s1/s2 noted, Regular, Rate and Rhythm Respiratory: Report: Breath Sounds are within normal limits, Clear to Auscultation of lung greenberg Abdomen: Report: Non-tender to palpation Extremities: Report: Non-tender to palpation. Skin: Report: Color of skin is within normal limits Neuro/Psych: Report: Mood affect is within normal limits, A+Ox3 - Lab Results All Lab Results last 24 hours: Laboratory Last Values WBC 6.9 Th/cmm (4.8-10.8) D 06/19/17 15:55 RBC 4.86 Mil/cmm (3.80-5.10) 06/19/17 15:55 Hgb 13.5 gm/dL (12-16) 06/19/17 15:55 Hct 39.4 % (41.0-60) L 06/19/17 15:55 MCV 81.0 fl (81-100) 06/19/17 15:55 MCH 27.8 pg (27.0-31.0) 06/19/17 15:55 MCHC Differential 34.3 pg (28.0-36.0) 06/19/17 15:55 RDW 15.2 % (11.5-20.0) 06/19/17 15:55 Plt Count 299 Th/cmm (150-400) D 06/19/17 15:55 MPV 7.9 fl 06/19/17 15:55 Neutrophils % 50.7 % (40.0-80.0) 06/19/17 15:55 Lymphocytes % 36.8 % (20.0-50.0) 06/19/17 15:55 Monocytes % 8.7 % (2.0-10.0) 06/19/17 15:55 Eosinophils % 3.0 % (0.0-5.0) 06/19/17 15:55 Basophils % 0.8 % (0.0-2.0) 06/19/17 15:55 Sodium 136 mEq/L (136-145) 06/20/17 05:49 Potassium 4.0 mEq/L (3.5-5.1) 06/20/17 05:49 Chloride 104 mEq/L (98-107) 06/20/17 05:49 Carbon Dioxide 27.9 mEq/L (21.0-31.0) 06/20/17 05:49 Anion Gap 8.1 (7.0-16.0) 06/20/17 05:49 BUN 12 mg/dL (7-25) 06/20/17 05:49 Creatinine 0.8 mg/dL (0.6-1.2) 06/20/17 05:49 Est GFR ( Amer) > 60.0 ml/min (>90) 06/20/17 05:49 Est GFR (Non-Af Amer) > 60.0 ml/min 06/20/17 05:49 BUN/Creatinine Ratio 15.0 06/20/17 05:49 Glucose 113 mg/dL (70-105) H 06/20/17 05:49 Calcium 10.1 mg/dL (8.6-10.3) 06/20/17 05:49 Total Bilirubin 0.2 mg/dL (0.3-1.0) L 06/20/17 05:49 AST 29 U/L (13-39) 06/20/17 05:49 ALT 24 U/L (7-52) 06/20/17 05:49 Alkaline Phosphatase 147 U/L (34-104) H 06/20/17 05:49 Total Protein 7.3 gm/dL (6.0-8.3) 06/20/17 05:49 Albumin 3.9 gm/dL (3.7-5.3) 06/20/17 05:49 Globulin 3.4 gm/dL 06/20/17 05:49 Albumin/Globulin Ratio 1.2 (1.0-1.8) 06/20/17 05:49 Laboratory Results - last 24 hr 06/20/17 05:49 Sodium 136 Potassium 4.0 Chloride 104 Carbon Dioxide 27.9 Anion Gap 8.1 BUN 12 Creatinine 0.8 Est GFR ( Amer) > 60.0 Est GFR (Non-Af Amer) > 60.0 BUN/Creatinine Ratio 15.0 Glucose 113 H Calcium 10.1 Total Bilirubin 0.2 L AST 29 ALT 24 Alkaline Phosphatase 147 H Total Protein 7.3 Albumin 3.9 Globulin 3.4 Albumin/Globulin Ratio 1.2 - Assessment Assessment: left foot pain/numbness s/p total hip replacement opioid addiction bipolar disorder schizophrenia chronic pain syndrome hepatitis C anxiety disorder - Plan Plan: will obtain orthopedic consult will obtain psychiatric consult
[2017-06-20] MEDS ORDERED: Nicotine 14 mg/24 hr Tdm TD SCH (09:00)
[2017-06-20] MEDS ORDERED: METHADONE HCL 10 MG/ML PO SCH (09:00)
[2017-06-20] MEDS ORDERED: ZIPRASIDONE HCL 60 MG PO SCH (09:00)
--- NOTE | 2017-06-20 10:58 | Consultation ---
DATE OF CONSULTATION: 06/20/2017 AGE: 47. SEX: Female. PHYSICIAN: Dr. Rodrigues. SLOT ROUTER: Dr. Gan. REASON FOR THE CONSULT: Monitor psychotropic medications. HISTORY OF PRESENT ILLNESS: The patient is a 47-year-old female with history of what seems to be schizoaffective disorder. The patient had left hip replacement and was admitted with numbness of left foot. The patient has been taking gabapentin, Seroquel, and Geodon. The patient currently seems to be sedated. The patient also according to staff was slightly demanding earlier. She is exhibiting no major problems so far ____. PAST PSYCHIATRIC HISTORY: The patient is taking multiple psychotropic medications for what seems to be schizoaffective disorder. PAST MEDICAL HISTORY: Left hip replacement with left numbness. SOCIAL HISTORY: No known alcohol or drug use. PRIMARY DIAGNOSIS: Schizoaffective disorder, bipolar type, with psychosis. TREATMENT PLAN: We will continue current psychotropic medications. We will monitor her behavior and reassess when more alert. It is my opinion that the patient is on high dose of psychotropic medications. Thanks to Dr. Rodrigues and will follow up with you. [facility]# [id number]
[2017-06-20] MEDS ORDERED: Probiotic Screen MC PRN (14:25)
[2017-06-20 17:09] LABS: % BASOPHILS 0.3 % (0.0-2.0); % EOSINOPHILS 2.9 % (0.0-5.0); % LYMPHOCYTES 36.6 % (20.0-50.0); % MONOCYTES 10.4 % (2.0-10.0); % NEUTROPHILS 49.8 % (40.0-80.0); HEMOGLOBIN 13.5 gm/dL (12-16); MEAN CELL VOLUME 82.3 fl (81-100); MEAN CORPUSCULAR HEMOGLOBIN 27.7 pg (27.0-31.0); MEAN CORPUSCULAR HGB CONC 33.7 pg (28.0-36.0); MEAN PLATELET VOLUME 7.8 fl; PLATELET COUNT 282 Th/cmm (150-400); RED BLOOD COUNT 4.87 Mil/cmm (3.80-5.10); RED CELL DISTRIBUTION WIDTH 15.6 % (11.5-20.0)
[2017-06-20 17:20] LABS: INR 0.89 (0.5-1.4); PROTHROMBIN TIME (TEST) 9.2 SECONDS (9.5-11.5)
[2017-06-21] MEDS ORDERED: Lactobacillus Rhamnosus 10 Billion CFU Capsule PO SCH (09:00)
--- NOTE | 2017-06-21 10:14 | Diagnostic Imaging Report ---
Some: Hip joints bilaterally. HISTORY: Status post cast removal. Findings: Portable supine examination of the hip joints bilaterally was performed at 1700 hours. The study demonstrates satisfactory positioning of total left hip prosthesis. There is no evidence of fracture dislocation. The head of prosthesis is well within the acetabular fossa The right hip joint is intact. The pelvis is normal. IMPRESSION: 1. Satisfactory positioning of total left hip prosthesis. Unremarkable sedation right hip joint.
--- NOTE | 2017-06-24 19:39 | Discharge Summary ---
DATE OF DISCHARGE: 06/21/2017 PRELIMINARY DIAGNOSES: 1. Left foot pain with numbness. 2. Status post total hip replacement. 3. History of opioid addiction. 4. Bipolar disorder. 5. Schizophrenia. 6. Chronic pain syndrome. 7. Hepatitis C. 8. Anxiety disorder. DISCHARGE DIAGNOSES: 1. Left foot pain with numbness. 2. Status post total hip replacement. 3. History of opioid addiction. 4. Bipolar disorder. 5. Schizophrenia. 6. Chronic pain syndrome. 7. Hepatitis C. 8. Anxiety disorder. BRIEF HISTORY OF PRESENT ILLNESS: This is a 47-year-old female who presents to [facility] ER for complaints of left foot pain and numbness. The patient was seen at the hospital in 03/2017, initially underwent left hip replacement. Approximately, 9 days afterwards, her prosthesis to her left hip was displaced and underwent reduction of the left hip under Ortho. The patient was placed on a PVC cast and was [facility]. The patient was subsequently transferred to ER for left foot numbness and pain. Her initial lab work in the ER was essentially normal. Her CBC shows white count was normal at 6.9, hemoglobin 13.5, hematocrit 39.4, and platelets 299,000. Chem-7: Sodium was 136, potassium 4.0, chloride 104, bicarbonate 27.9, BUN 12, creatinine 0.8, and glucose was 113. The patient was subsequently admitted for further evaluation and treatment. HOSPITAL COURSE: The patient improved during her hospital stay, was seen and evaluated by Ortho. The patient's PVC cast was replaced and was given a new cast. She was subsequently [facility] to the jail to continue her current treatment. JOB# [id number]
== END 2017-06-20 21:00 | disposition home or self-care (01) | DRG 351 ==
LOC: ER 15:12 → MSI 16:15
PROVIDERS: ADMIT Family Medicine; ATTEND Family Medicine
DX: M79.672 Pain in left foot (principal); F11.20 Opioid dependence, uncomplicated; G89.4 Chronic pain syndrome; B19.20 Unspecified viral hepatitis C without hepatic coma; F41.9 Anxiety disorder, unspecified; F25.0 Schizoaffective disorder, bipolar type; Z96.642 Presence of left artificial hip joint
CPT/HCPCS: 36415-UA; 73521; 80048-TC; 80053-TC; 81025-TC; 85025-TC; 85610-TC; Z7610

== ENCOUNTER 2018-03-02 17:15 | Emergency (ER) | payer MEDICAID ==
--- NOTE | 2018-03-02 20:39 | ED Physician Chart ---
ED Chief Complaint/HPI - Patient Information Date Seen:: 03/02/18 Time Seen:: 20:30 Chief Complaint:: left hip pain History of Present Illness:: At 10:30-11:00 last night patient developed left buttocks pain radiating down her left leg. No recent trauma. Patient had left hip replacement surgery here 04/09/2017. 2 days after she was discharged from the hospital her left hip prosthesis dislocated and had to be reduced Allergies:: Allergies Allergy/AdvReac Type Severity Reaction Status Date / Time No Known Allergies Allergy Verified 03/02/18 17:37 Vitals:: Vital Signs - 8 hr 03/02/18 17:37 Temp 97.0 F HR 99 RR 16 BP 127/98 O2 Sat % 98 Historian:: Patient Review:: Nurse's Note Reviewed ED Review of Systems - Review of Systems General/Constitutional: No fever, No chills, No weight loss, No weakness, No diaphoresis, No edema, No loss of appetite Skin: No skin lesions, No rash, No bruising Head: No headache, No light-headedness Eyes: No loss of vision, No pain, No diplopia ENT: No earache, No nasal drainage, No sore throat, No tinnitus Neck: No neck pain, No swelling, No thyromegaly, No stiffness, No mass noted Cardio Vascular: No chest pain, No palpitations, No PND, No orthopnea, No edema Pulmonary: No SOB, No cough, No sputum, No wheezing GI: No nausea, No vomiting, No diarrhea, No pain, No melena, No hematochezia, No constipation, No hematemesis G/U: No dysuria, No frequency, No hematuria Musculoskeletal: Bone or joint pain, Muscle pain Endocrine: No polyuria, No polydipsia Psychiatric: Prior psych history, Anxiety, No suicidal ideation Hematopoietic: No bruising, No lymphadenopathy Allergic/Immuno: No urticaria, No angioedema Neurological: No syncope, No focal symptoms, No weakness, No paresthesia, No headache, No seizure, No dizziness, No confusion, No vertigo ED Past Medical History - Past Medical History Past Medical History: Other (bipolar disorder with psychotic features; schizoaffective disorder; anxiety; panic attacks) Family History: HTN Social History: Smoker, No Alcohol, Other (patient states she smokes as many cigarettes as she possibly can every day) Surgical History: other (left hip prosthesis) Psychiatricy History: Other (see above) Family Medical History - Family Member Mother History Unknown: Yes Hx Family Cancer: No Hx Family Congestive Heart Failure: No Hx Family Hypertension: No Hx Family Diabetes: Yes Hx Family Seizures: No Hx Family Dementia: No Hx Family AIDS: No ED Physical Exam - Physical Examination General/Constitutional: Awake, Well-developed, well-nourished, Alert, No distress, GCS 15, Non-toxic appearing, Ambulatory Head: Atraumatic Eyes: Lids, conjuctiva normal, PERRL, EOMI Skin: Nl inspection, No rash, No skin lesions, No ecchymosis, Well hydrated, No lymphadenopathy ENMT: External ears, nose nl, Nasal exam nl, Lips, teeth, gums nl Neck: Nontender, Full ROM w/o pain, No JVD, No nuchal rigidity, No bruit, No mass, No stridor Respiratory: Nl effort/Exclusion, Clear to Auscultation, No Wheeze/Rhonchi/Rales Cardio Vascular: RRR, No murmur, gallop, rubs, NL S1 S2 GI: No tenderness/rebounding/guarding, No organomegaly, No hernia, Normal BS's, Nondistended, No mass/bruits, No McBurney tenderness : No CVA tenderness Extremities: No edema, Normal digits & nails Other Extremities comments:: Walks well but with slight limp favoring the left leg Neuro/Psych: Alert/oriented, DTR's symmetric, Normal sensory exam, Normal motor strength, Judgement/insight normal, Mood normal, Normal gait, No focal deficits Misc: Normal back, No paraspinal tenderness ED Labs/Radiology/EKG Results - Radiology Results Results: Left hip x-ray showed left hip prosthesis in place ED Septic Shock - . Is Septic Shock (SBP<90, OR Lactate>4 mmol\L) present?: No - <6hrs of presentation: Vital Signs: Vital Signs - 8 hr 03/02/18 17:37 Temp 97.0 F HR 99 RR 16 BP 127/98 O2 Sat % 98 ED Reassessment (Disposition) - Diagnosis Diagnosis:: Left hip pain; status post left hip prosthesis; bipolar disorder with psychotic features; nicotine abuse - Aftercare/Follow up Instructions Aftercare/Follow-Up Instructions:: Refer to Discharge Instructions - Patient Disposition Discharge/Transfer:: Home Condition at Disposition:: Stable, Unchanged ED Discharge Plan - Patient Disposition Instructions: Hip Pain Additional Instructions: FOLLOW UP WITH YOUR ORTHOPEDIC DR. IF NOT FEELING ANY BETTER. CONTROL ANY PAIN WITH TYLENOL OR MOTRIN DIRECTED.
--- NOTE | 2018-03-03 08:23 | Diagnostic Imaging Report ---
Left hip 2 views Indication: pain Comparison: Left hip x-ray on 06/20/2017 Findings: A bipolar left hip hemiarthroplasty seen. Mild increased surrounding heterotopic ossification is seen laterally. No evidence of acute fracture or dislocation. No definite evidence of hardware loosening. Nutrient vessels of the femur are noted. Impression: Redemonstration of bipolar left hip hemiarthroplasty. No evidence of an acute fracture or hardware loosening. Mild increased heterotopic calcification seen along the lateral aspect of left acetabulum. In the setting of trauma, if clinical symptoms persist and there is continued concern for an occult fracture, follow up exams in 5-7 days is suggested.
== END 2018-03-02 21:10 | disposition home or self-care (01) ==
LOC: ER 17:15
DX: M25.552 Pain in left hip (principal); F17.200 Nicotine dependence, unspecified, uncomplicated; Z96.642 Presence of left artificial hip joint
CPT/HCPCS: 73501; 81025-TC; Z7502

== ENCOUNTER 2018-09-20 17:39 | Emergency (ER) | payer MEDICAID ==
[2018-09-20 18:16] LABS: AMPHETAMINE URINE POSITIVE (NEGATIVE); BARBITURATES URINE NEGATIVE (NEGATIVE); PHENCYCLIDINE (PCP) URINE NEGATIVE (NEGATIVE)
[2018-09-20 18:17] LABS: BENZODIAZEPINES QUAL URINE POSITIVE (NEGATIVE); CANNABINOID THC NEGATIVE (NEGATIVE); COCAINE METABOLITE QUAL URINE NEGATIVE (NEGATIVE); METHADONE URINE NEGATIVE (NEGATIVE); METHAMPHETAMINES QUAL URINE POSITIVE (NEGATIVE); OPIATES (MORPHINE) QUAL. URINE NEGATIVE (NEGATIVE); TRICYCLICS (TCA) QUAL. URINE POSITIVE (NEGATIVE)
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
== END 2018-09-20 18:46 | disposition home or self-care (01) ==
LOC: ER 17:39
DX: F13.90 Sedative, hypnotic, or anxiolytic use, unspecified, uncomplicated (principal); F19.90 Other psychoactive substance use, unspecified, uncomplicated; G89.29 Other chronic pain; F31.9 Bipolar disorder, unspecified; F20.9 Schizophrenia, unspecified; Z72.89 Other problems related to lifestyle
CPT/HCPCS: 80307; Z7502